=== PATIENT | male | born 1990 | race Caucasian/White ===

== ENCOUNTER 2019-08-29 05:54 | Inpatient (IN) | payer OTHER ==
--- OUTSIDE RECORDS SUMMARY | 2019-08-29 05:56 | XMS REPORT | Clinical Summary ---
:1990 Author Organization [facility] Address [address] [place] [address] Care Team Providers Name Role Phone Asked, No Pcp Primary Care Provider Unavailable Allergies No Known Allergies Medications Medication Sig Dispensed Refills Start Date End Date Status FLUoxetine (PROzac) 20 Take 40 mg by 0 Active MG capsule mouth daily. metFORMIN XR Take 1,000 mg by 0 05/30/2013 Active (GLUCOPHAGE-XR) 500 mg mouth. 24 hr tablet FORA G20 strip test USE FOUR TIMES A 0 02/06/2016 Active strips DAY. INCONTROL SUPER THIN USE FOUR TIMES A 0 02/06/2016 Active LANCETS 30 gauge misc DAY. LANTUS SOLOSTAR 100 Inject 46 Units 5 pen 3 03/04/2016 Active unit/mL injection under the skin (pen) daily. HUMALOG KWIKPEN 100 Inject 12 Units 4 pen 3 03/04/2016 Active unit/mL insulin pen under the skin 3 (three) times a day. Active Problems Problem Noted Date Diabetes type 1, uncontrolled 03/03/2016 Diabetic ketoacidosis without coma associated with typ e 1 diabetes 02/03/2016 mellitus Major depression 02/03/2016 Family History Medical History Relation Name Comments Heart disease Father Heart disease Mother Relation Name Status Comments Father Alive Mother Alive Social History Tobacco Use Types Packs/Day Years Used Date Never Smoker Alcohol Use Drinks/Week oz/Week Comments Yes occasional not o ften Sex Assigned at Date Recorded Not on file Job Start Date Occupation Industry Not on file Not on file Not on file Travel History Travel Start Travel End No recent travel history available. Last Filed Vital Signs Not on file Plan of Treatment Health Maintenance Due Date Last Done Comments DIABETIC RETINAL EYE EXAM 1990 DIABETIC FOOT EXAM 2000 URINE MICROALBUMIN 2000 INFLUENZA VACCINE 09/09/2019 Results Not on fileafter 08/28/2018 Advance Directives For more information, please contact: [phone] Type Date Recorded Patient Photolithographic Stripper Explanati on Advance Directives, Living Will and Medical Power of Housekeeper Child Care
--- OUTSIDE RECORDS SUMMARY | 2019-08-29 05:56 | XMS REPORT | Continuity of Care Document ---
:1990 Author Organization [facility] t Address [address] [place] [address] [address]. [address] [place] [address] Care Team Providers Name Role Phone Asked, Pcp Primary Care Physician Unavailable Samira ASTUDILLO, A Attending Clinician Unavailable Mal Meyer Attending Clinician Josiah US Attending Clinician Misael Attending Clinician Cameron US S Attending Clinician Guilherme ASTUDILLO, E Attending Clinician Josiah US Admitting Clinician Problems Condition Condition Condition Status Onset Resolution Last Treating Co mments Source Name Details Category Date Date Treatment Clinician Date Diabetes Diabetes Disease Active [place] type 1, type 1, 1-24 [facility] uncontroll uncontroll 00:00: st ed ed 00 Diabetic Diabetic Disease Active 2015-02 [place] ketoacidos ketoacidos 2-26 Me thodi is without is without 00:00: st coma coma 00 associated associated with type with type 1 diabetes 1 diabetes mellitus mellitus Major Major Disease Active 2015-02 [place] depression depression 2- Me thodi 00:00: st 00 Allergies, Adverse Reactions, Alerts This patient has no known allergies or adverse reactions. Family History Family Member Diagnosis Comments Start Date Stop Date Source Natural father Heart disease Kale Fisher Natural mother Heart disease [place] [facility] Social History Social Habit Start Date Stop Date Quantity Comments Source Sex Assigned At [place] [facility] Alcohol intake 2016-03-03 2016-03-03 Current drinker of [facility] 00:00:00 00:00:00 alcohol (finding) Alcohol Comment 2016-02-03 2016-02-03 occasional not [place] [facility] 00:00:00 00:00:00 often Smoking Status Start Date Stop Date Source Never smoker [place] [facility] Medications Ordered Filled Start Stop Current Ordering Indication Dosage Frequency Signature Comments Components Source Medication Medication Date Date Medication? Clinician (SIG) Name Name ANTHONY Yes 46U QD Inject 46 [place] SOLOSTAR 1-25 Units [facility] 100 unit/mL 00:00: under the s t injection 00 skin (pen) daily. HUMALOG Yes 12U [id number] Inject 12 [place] KWIKPEN 100 1-25 [id number] Units M ethodi unit/mL 00:00: 3D under the st insulin pen 00 skin 3 (three) times a day. FLUoxetine Yes 40mg QD Take 40 mg [place] (PROzac) 20 1-24 by mouth Meth maria elena MG capsule 10:55: daily. st 13 FORA G20 2015-02 Yes USE FOUR [place] strip test 2-29 TIMES A [facility] strips 00:00: DAY. st 00 INCONTROL 2015-02 Yes USE FOUR [place] SUPER THIN 2-29 TIMES A [facility] LANCETS 30 00:00: DAY. st gauge misc 00 metFORMIN Yes 1000mg Take 1,000 [place] XR 4-22 mg by [facility] (GLUCOPHAGE 00:00: mouth. st -XR) 500 mg 00 24 hr tablet Procedures This patient has no known procedures. Plan of Care Planned Activity Planned Date Details Comments Source Future Scheduled 2019-09-09 INFLUENZA VACCINE [place] [facility] 00:00:00 [code = INFLUENZA VACCINE] Future Scheduled 2000 DIABETIC FOOT EXAM [place] [facility] 00:00:00 [code = DIABETIC FOOT EXAM] Future Scheduled 2000 URINE MICROALBUMIN [place] [facility] 00:00:00 [code = URINE MICROALBUMIN] Future Scheduled 1990 DIABETIC RETINAL EYE [facility] 00:00:00 EXAM [code = DIABETIC RETINAL EYE EXAM] Encounters Start End Encounter Admission Attending Care Care Encounter Source Date/Time Date/Time Type Type Clinicians Facility Department ID 2019-06-13 2019-06-13 Transition Brendan Hoganadriana [id number] 00:00:00 00:00:00 of Care Dequan Borreroy [id number] [place] [id number] 2019-06-07 2019-06-10 [facility] Radha Singh [facility] [id number] 10:13:01 17:28:00 Encounter Brent Rahman [id number] [place] [id number] [place] [id number] 2018-10-20 2018-10-20 Transition MisaelNatalia [id number] 00:00:00 00:00:00 of Care Rosie Luiz [id number] [place] [id number] 2018-10-16 2018-10-19 [facility] [id number]. [id number] 23:16:53 12:33:00 Encounter Brent Rahman [id number] [place] [id number] [place] [id number] 2018-10-19 2018-10-19 Patient Beti Vanegas [id number] 00:00:00 00:00:00 Outreach Yoav Luiz [id number] [place] [id number] Results This patient has no known results.
--- OUTSIDE RECORDS SUMMARY | 2019-08-29 06:01 | XMS REPORT | Summary of Care ---
:1990 Author Organization [facility] Address [address] [place] [id number] Care Team Providers Name Role Phone Pcp, Patient Does Not Have A Primary Care Provider [phone] Reason for Referral Other (Routine) Status Reason Specialty Diagnoses / Referred By Referred To Procedures Contact Contact New Request Diagnoses Hypophosphatemia Shaquille Pineda MD Aglieco, Fabio G, Procedures Discharge Follow-up: Specialty Provider VIRGILIO MORRIS; 1 Week [address] [place], [place] [address] [place] [address] [address] [place], [place] Phone: [phone] Phone: Fax: (Routine) Status Reason Specialty Diagnoses / Procedures Referred By R eferred To Contact Contact New Request Diagnoses Diabetic ketoacidosis without coma associated with other specified diabetes mellitus Shaquille Pineda MD Pcp, Patient Does Procedures Discharge Follow-up: PCP PATIENT DOES NOT HAVE A PCP; 1 Week 301 [facility] Not Have A [place], [place] [address] [facility] [address] [address] [place], [place] Phone: [phone] Phone: Radiology Services (STAT) Status Reason Specialty Diagnoses / Referred By Referred To Procedures Contact Contact New Request Diagnostic Diagnoses Diabetic ketoacidosis without coma associated with other specified diabetes mellitus Leukocytosis, unspecified type Singh, Radha Radiology Procedures XR CHEST 1 VW R, EMNP 301 [facility] [id number] [place] [address] Reason for Visit Reason Comments Other high glucose Auth/Cert Status Reason Specialty Diagnoses / Referred By Referred To Procedures Contact Contact Emergency Medicine Diagnoses SOB [facility] Emergency Dept [address] [place] [address] [place] [address] Fax: Encounter Details Date Type Department Care Team Description 06/07/2019 - [facility] Medicine Radha Singh EMNP [address] [id number] [place], [place] [id number] DKA (diabetic 06/10/2019 Encounter Surgery Unit Brent Rahman MD 301 [facility]. [address] [place], [place] [id number] ketoacidoses) [address] [place] [address] [place], [place] [id number] Allergies No Known Allergiesdocumented as of this encounter (statuses as of 06/10/2019) Medications Medication Sig Dispensed Refills Start End Date Status Date glucagon (GLUCAGON inject 1 mg 1 mg 6 Active EMERGENCY) 1 mg under the 4 injectionIndications: skin as Type I (juvenile needed for type) diabetes Other (BG mellitus without <70 and mention of patient complication, unresponsive uncontrolled .). insulin degludec inject 46 0 Act henrry (TRESIBA FLEXTOUCH Units under U-100) 100 unit/mL (3 the skin mL) InPn daily. traZODone 50 mg Take 50 mg 0 Act henrry tablet by mouth at bedtime. SERTraline 100 mg Take 100 mg 0 Active tabletIndications: by mouth anxiety daily. Indications: anxious NOVOLOG U-100 INSULIN inject 0 Active ASPART SC under the skin 3 (three) times daily before meals. potassium, sodium Take 1 3 Packet 0 Ac tive phosphates Packet by 0 280-160-250 mg mouth 3 packetIndications: (three) Hypophosphatemia times daily. lactobacillus Take 1 14 tablet 0 Active acidophilus 25 tablet by 0 million cell -100 mg mouth 2 captabIndications: (two) times Leukocytosis, daily. unspecified type ampicillin 500 mg Take 1 21 capsule 0 A ctive capsuleIndications: capsule by 0 Leukocytosis, mouth 3 unspecified type (three) times daily. metformin ER Take 2 Tabs 120 Tab 3 06/07/19 Disco ntinued (GLUCOPHAGE-XR) 500 by mouth 2 4 20 (Patient mg 24 hr (two) times Reported ) tabletIndications: daily with Type I (juvenile meals. type) diabetes mellitus without mention of complication, uncontrolled insulin lispro inject 22 1 Box 2 06/07/19 Disco ntinued (HUMALOG KWIKPEN) 100 Units under 7 20 (Patient unit/mL pen injector the skin 3 Reported) (three) times daily before meals. insulin inject 34 0 06/07/19 Discontinu ed glargine,hum.rec.anlo Units under 20 (Patient g (TOUJEO SOLOSTAR the skin R eported) U-300 INSULIN SC) daily. ampicillin 500 mg Take 1 21 capsule 0 06/10/19 D iscontinued capsuleIndications: capsule by 0 20 Leukocytosis, mouth 3 unspecified type (three) times daily for 7 days. potassium, sodium Take 1 3 Packet 0 06/10/19 Di scontinued phosphates Packet by 0 20 280-160-250 mg mouth 3 packetIndications: (three) Hypophosphatemia times daily for 1 day. lactobacillus Take 1 14 tablet 0 06/10/19 Discon tinued acidophilus 25 tablet by 0 20 million cell -100 mg mouth 2 captabIndications: (two) times Leukocytosis, daily for 7 unspecified type days. 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 Chlamydia infection 06/15/2013 Seasonal allergic rhinitis 05/24/2013 Obesity (BMI 30.0-34.9) 07/05/2012 Insulin pump status 06/20/2012 Overview: Medtronic 723 started May 2012 Uncontrolled type 1 diabetes mellitus 10/05/2008 Overview: ICD10 Diagnosis Term Legislative Analyst Utility documented as of this encounter (statuses as of 06/10/2019) Immunizations Name Administration Dates Next Due Influenza Virus Vaccine 10/20/2017 Influenza Virus Vaccine Quad .5 mL IM 6+ MO 06/10/2019 documented as of this encounter Social History Tobacco Use Types Packs/Day Years Used Date Never Smoker Smokeless Tobacco: Never Used Alcohol Use Drinks/Week oz/Week Comments Yes 0.25 Standard drinks or equivalent 0.0 twice a month Sex Assigned at Date Recorded Not on file Job Start Date Occupation Industry Not on file Not on file Not on file Travel History Travel Start Travel End No recent travel history available. COVID-19 Exposure Response Date Recorded In the last month, have you been in contact with No / Unsure 06/07/2019 10:31 AM CDT someone who was confirmed or suspected to have Coronavirus / COVID-19? documented as of this encounter Last Filed Vital Signs Vital Sign Reading Time Taken Comments Blood Pressure 126/65 06/10/2019 3:49 PM CDT Pulse 55 06/10/2019 3:49 PM CDT Temperature 36.3 C (97.3 F) 06/10/2019 3:49 PM CDT Respiratory Rate 18 06/10/2019 3:49 PM CDT Oxygen Saturation 99% 06/10/2019 3:49 PM CDT Inhaled Oxygen Concentration - - Weight 129.3 kg (285 lb) 06/07/2019 2:00 PM CDT Height 185.4 cm (6' 1") 06/07/2019 10:33 AM CDT Body Mass Index 37.6 06/07/2019 10:33 AM CDT documented in this encounter Discharge Instructions AttachmentsThe following attachments cannot be sent through Care Everywhere. Diabetes, Managing Stress When You Have (Paraguayan)Diabetes, Medicine, Ways to Take (Paraguayan)Potassium phosphate; Sodium Phosphate oral tablet ([place]aguayan) Ampicillin capsules (Paraguayan)Lactobacillus Oral formulations (Paraguayan)documented in this encounter Progress Notes Francisco Gallardo RN - 06/10/2019 5:00 PM CDT Care Management Discharge Disposition Note (DCDN) 5-2-1 Interventions: Disease specific education;Intensive medication reconciliation/management;Teachback;Clear discharge plan;Follow-up appointments 5-2-1 Providers: Porcelain Enamel Sprayer/Burrer Hand;Physician 5-2-1 Patient Capacity Improvements: Avoidance of adverse events/readmission Discharge Plan for ongoing care and services: Is this a new referral: Patient Choice completed for referred services: DME location: Other DME location: Durable Medical Equipment: Home Health location: Discharge location(s): Patient choice completed for referred services: Discussed with patient/patients family involved in decision making: Yes Patient or family caregiver understands, and agrees with discharge plan. Community resources/referrals made or provided to patient: No Resources/Referrals: Transportation: Private Vehicle(Tatyana Velez, friend [phone]) Mental Status: Alert & Oriented to Person,Place & Time Living Arrangement: Home Other living arrangement: Address of living arrangement: [address] [place] [address] Funding Resources: [facility] informed of discharge plan: [place] of RN informed: Estimated discharge date: 06/10/19 Time: Additional Information: HARLEY/LEONIE Name & Contact number: Francisco Gallardo RN BSN not for patient use [email or web address] The following information has been provided to the facility noted above: reason for the patient discharge or transfer; patients physical and psychosocial status; summary of care, treatment, servicesprovided to patient; and the patient progress toward goals. Shaquille Leo MD - 06/09/2019 6:52 PM CDT Hospitalist Progress Note SUBJECTIVE: No acute event C/o sore throat. COVID negative on arrival CURRENT MEDICATIONS - reviewed. Current Facility-Administered Medications Medication Dose Route Frequency Last Rate Last Dose ampicillin (PRINCIPEN) capsule 500 mg 500 mg Oral TID 500 mg at 06/09/19 1337 benzocaine-menthol (CEPACOL SORE THROAT (FRANCESCO-MEN)) lozenge 1 Lozenge 1 Lozenge Oral Q4HPRN [START ON 06/10/2019] insulin glargine (LANTUS U-100) injection 55 Units 55 Units Subcutaneous DAILY acetaminophen (TYLENOL) tablet 650 mg 650 mg Oral Q8HPRN 650 mg at 06/09/19 0049 NaCl 0.45% (1/2NS) IV infusion 1,000 mL 1,000 mL IV Infusion CONTINUOUS 125 mL/hr at 06/09/19 1108 1,000 mL at 06/09/19 1108 phosphorus (K PHOS NEUTRAL) tablet 2 tablet 500 mg Oral BID 2 tablet at 06/09/19 0953 Sliding Scale Insulin - Aspart (NOVOLOG) + Fsbg Testing Subcutaneous TID MEALS+HS 2 Units at06/09/19 1655 sodium bicarbonate (ANTACID (SODIUM BICARBONATE)) tablet 650 mg 650 mg Oral QID 650 mg at 06/09/19 1630 traMADol (ULTRAM) tablet 50 mg 50 mg Oral BIDPRN 50 mg at 06/08/19 2329 docusate (COLACE) capsule 100 mg 100 mg Oral BID 100 mg at 06/09/19 0954 lactobacillus acidophilus (ACIDOPHILLUS) 25 million cell -100 mg captab 1 tablet 1 tablet Oral BID 1 tablet at 06/09/19 0953 ondansetron (ZOFRAN (PF)) injection 4 mg 4 mg Slow IV Push Q6HPRN 4 mg at 06/09/19 0121 PHYSICAL EXAM: BP (!) 142/84 | Pulse 82 | Temp 36.7 C (98.1 F) (Tympanic) | Resp 18 | Ht 1.854 m (6' 1") |Wt 129.3 kg (285 lb) | SpO2 98% | BMI 37.60 kg/m Temp: [36.6 C (97.8 F)-37.2 C (99 F)] Pulse: [58-94] Resp: [16-18] BP: (120-146)/(58-84) POCT Blood Glucose (manual): [251 mg/dL-265 mg/dL] Intake/Output Summary (Last 24 hours) at 06/09/2019 1853 Last data filed at 06/09/2019 1410 Gross per 24 hour Intake 630 ml Output 3800 ml Net -3170 ml NAD Anicteric sclera Mild pharyngeal erythema Good air entry b/l RRR, nl s1s2 Abd soft NT No significant LE, no calf tenderness AAO, no gross deficits Skin warm and dry Bilateral knees not red or swollen LABS/IMAGING - reviewed, pertinent results as below: CBC BMP PT/INR WBC x10^3 (/uL) Date Value 04/05/2012 4.6 WBC-LC (x10E3/uL) Date Value 09/15/2012 6.3 WBC (10*3/L) Date Value 06/08/2019 23.79 (H) NA Date Value 06/09/2019 135 mmol/L 04/05/2012 139 MMOL/L Sodium, Serum-LC (mmol/L) Date Value 09/15/2012 141 No results found for: PT RBC x10^6 (/uL) Date Value 04/05/2012 5.34 RBC-LC (x10E6/uL) Date Value 09/15/2012 5.61 RBC (10*6/L) Date Value 06/08/2019 4.89 K Date Value 06/09/2019 3.1 mmol/L (L) 04/05/2012 4.4 MMOL/L Potassium, Serum-LC (mmol/L) Date Value 09/15/2012 3.9 No results found for: PTINR PLT x10^3 (/uL) Date Value 04/05/2012 233 Platelets-LC (x10E3/uL) Date Value 09/15/2012 240 PLT (10*3/L) Date Value 06/08/2019 321 CALCIUM Date Value 06/09/2019 6.5 mg/dL (L) 04/05/2012 9.5 MG/DL Calcium, Serum-LC (mg/dL) Date Value 09/15/2012 10.0 HGB Date Value 06/08/2019 14.7 g/dL 04/05/2012 15.9 G/DL Hemoglobin-LC (g/dL) Date Value 09/15/2012 16.4 CL Date Value 06/09/2019 111 mmol/L (H) 04/05/2012 102 MMOL/L Chloride, Serum-LC (mmol/L) Date Value 09/15/2012 100 aPTT HCT (%) Date Value 06/08/2019 42.6 04/05/2012 45.9 Hematocrit-LC (%) Date Value 09/15/2012 48.7 BUN Date Value 06/09/2019 7 mg/dL 04/05/2012 17 MG/DL BUN-LC (mg/dL) Date Value 09/15/2012 16 No results found for: APTTPAT CREATININE Date Value 06/09/2019 0.37 mg/dL (L) 04/05/2012 0.48 MG/DL (L) Creatinine, Serum-LC (mg/dL) Date Value 09/15/2012 0.70 (L) IMAGING- Hospital Encounter on 06/07/19 XR CHEST 1 VW Narrative HISTORY: DKA. TECHNIQUE: 2 Portable AP view of the chest were obtained. Comparison made with 10/17/2018 study. FINDINGS: No acute pneumonia. No pneumothorax or pleural effusion or pulmonary congestion detected. Cardiac size is within normal limits. CONCLUSIONS: No signs of acute cardiopulmonary disease. HPI: 28 y/o male presented to ER with one day of vomiting, persistent and dyspnea and difficulty catchingbreath. No chest pain, fevers/chills, sick contacts, abd apin, dysuria. Last DKA admission was here in October 2018. He says he's been compliant with his insulin. ASSESSMENT/PLAN Esa Esquivel Jr. is a 28 year old male with DKA ENRIQUETA Hyperkalemia Acute respiratory distress Anion gap metabolic acidsos Severe dehydration Severe leukocytosis, check diff consult Uncontrolled IDDM with hyperglycemia, A1c 9.6, takes tresiba 46 units QAM, novolog sliding scale Anxiety, insomnia, trazodone prn Depression zoloft 100 mg qd Morbid Obesity Not taking hiv prophylaxis anymore Thrombocytosis hypophosphatemia DKA resolved. On lantus and ssi Procal 0.99, repeat again in AM to see trend F/u diff consult, cultures Wbc improving, was very high on admission Ceftriaxone, azithromycin stopped on day 3. Ampicillin started 06/08 per ID Patient has sore throat. Will check strep and flu CXR no acute pathology IVF ENRIQUETA resolved Nephrology consult Dr. Morris dvt proph SCD Full Code Dispo - home likely tomorrow if WBC continue to trend down Seble Cheek LBSW - 06/09/2019 10:41 AM CDTSubjective Patient ID: Eas Esquivel Jr. is a 28 year old male. Care Management Social Functional Assessment Patient Name: Esa Esquivel Jr. Age: [age] year old Sex: male Patient's Previous Admission Date at [facility]: 10/17/2018 Current diagnosis and co-morbidities: SOB; DKA; LEUKOCYTOSIS Readmission Questions: Was patient discharged from any acute care hospital within the last 30 days: No Social Functional Assessment: Primary language spoken/preferred: [place]ayan Mental Status: Alert & Oriented to Person,Place & Time Information given by: Self Patient's support system: Other Name and number of support system: Tatyana Velez, friend [phone] Primary Greenskeeper Supervisor: Self MPOA: No Living Arrangement: Home Address of living arrangement : [address] [facility] [address] Persons living in home: Self Barriers to returning home: None Baseline functional status- ambulation: Independent Functional status-baseline personal care: Independent Baseline functional status- driving: Independent Baseline functional status- grocery shopping: Independent Functional status-baseline housekeeping: Independent Functional status-baseline meal prep: Independent Current functional status same as prior: Yes Do you have a PCP?: No Home Health Care Agency: No Provider Services: No DME Company: No Equipment: None Hemodialysis: No Community resources utilized: None Funding Resources: Commercial Prescription coverage plan: [facility] where meds are filled: Other Other pharmacy: [facility] Anticipated services prior to disharge: Continue Medical Eval Expected mode of discharge transportation: Same as support system Additional Recommendations for DC: Medical clearance Additional info required for discharge planning: Pending medical evaluation Recommended discharge plan: Home SFA Complete: Social Functional Assessment complete: Yes Alcohol Use Screening (AUDIT-C) How often do you have a drink containing alcohol?: Never SCORE: 0 Did patient elect to have resources provided: No Role of Care Management explained. Any issues or concerns with obtaining/affording your medications at home: no. Are you or your support system able to brain picker medications at discharge: yes. Review of Systems Objective Physical Exam Assessment/Plan Home with family support ,no needs to report ELPIDIO Fried Burrer Hand - Care Management [facility] [phone] [email or web address] Silverio Michelle FNP - 06/09/2019 10:33 AM CDT Subjective: Patient is a 28-year-old male who presented to the emergency room with vomiting and dyspnea. Past medical history of diabetes. Patient found to be in DKA. Patient with leukocytosis which I have consulted for. Patient examined at bedside. Denies nausea, vomiting, diarrhea and fevers. Deniesburning/pain with urination. Patient reports abdominal tenderness improving. Objective: Vitals: 06/08/19201806/08/19 2316 06/09/19 0404 06/09/19 0716 BP: 129/73 (!) 146/73 (!) 144/78 130/73 Pulse: 94 89 58 75 Resp: 16 18 16 18 Temp: 36.9 C (98.4 F) 37.2 C (99 F) 36.6 C (97.9 F) 36.6 C (97.8 F) TempSrc: Temporal Artery Temporal Artery Temporal Artery SpO2: 100% 97% 98% 98% Weight: Height: CBC WBC x10^3 (/uL) Date Value 04/05/2012 4.6 WBC-LC (x10E3/uL) Date Value 09/15/2012 6.3 WBC (10*3/L) Date Value 06/08/2019 23.79 (H) RBC x10^6 (/uL) Date Value 04/05/2012 5.34 RBC-LC (x10E6/uL) Date Value 09/15/2012 5.61 RBC (10*6/L) Date Value 06/08/2019 4.89 PLT x10^3 (/uL) Date Value 04/05/2012 233 Platelets-LC (x10E3/uL) Date Value 09/15/2012 240 PLT (10*3/L) Date Value 06/08/2019 321 HGB Date Value 06/08/2019 14.7 g/dL 04/05/2012 15.9 G/DL Hemoglobin-LC (g/dL) Date Value 09/15/2012 16.4 HCT (%) Date Value 06/08/2019 42.6 04/05/2012 45.9 Hematocrit-LC (%) Date Value 09/15/2012 48.7 CMP NA Date Value 06/09/2019 135 mmol/L 04/05/2012 139 MMOL/L Sodium, Serum-LC (mmol/L) Date Value 09/15/2012 141 K Date Value 06/09/2019 3.1 mmol/L (L) 04/05/2012 4.4 MMOL/L Potassium, Serum-LC (mmol/L) Date Value 09/15/2012 3.9 CALCIUM Date Value 06/09/2019 6.5 mg/dL (L) 04/05/2012 9.5 MG/DL Calcium, Serum-LC (mg/dL) Date Value 09/15/2012 10.0 CL Date Value 06/09/2019 111 mmol/L (H) 04/05/2012 102 MMOL/L Chloride, Serum-LC (mmol/L) Date Value 09/15/2012 100 BUN Date Value 06/09/2019 7 mg/dL 04/05/2012 17 MG/DL BUN-LC (mg/dL) Date Value 09/15/2012 16 CREATININE Date Value 06/09/2019 0.37 mg/dL (L) 04/05/2012 0.48 MG/DL (L) Creatinine, Serum-LC (mg/dL) Date Value 09/15/2012 0.70 (L) GLUCOSE Date Value 06/09/2019 211 mg/dL (H) 04/05/2012 271 MG/DL (H) Glucose, Serum-LC (mg/dL) Date Value 09/15/2012 92 CO2 TOTAL Date Value 06/09/2019 14 mmol/L (L) 04/05/2012 25 MMOL/L Carbon Dioxide, Total-LC (mmol/L) Date Value 09/15/2012 23 ALBUMIN Date Value 06/09/2019 2.5 g/dL (L) 04/05/2012 3.9 G/DL Albumin, Serum-LC (g/dL) Date Value 09/15/2012 4.8 T PROTEIN Date Value 06/09/2019 4.9 g/dL (L) 04/05/2012 6.8 G/DL Protein, Total, Serum-LC (g/dL) Date Value 09/15/2012 7.6 TOTAL BILI Date Value 06/09/2019 0.4 mg/dL 04/05/2012 0.3 MG/DL BILI UNCON Date Value 06/07/2019 0.4 mg/dL 04/05/2012 0.2 MG/DL BILI CONJ Date Value 06/07/2019 0.0 mg/dL 04/05/2012 0.0 MG/DL ALT(SGPT) (U/L) Date Value 10/16/2018 16 04/05/2012 29 ALT (SGPT)-LC (IU/L) Date Value 09/15/2012 14 ALTv (U/L) Date Value 06/09/2019 9 AST(SGOT) (U/L) Date Value 06/09/2019 20 04/05/2012 23 AST (SGOT)-LC (IU/L) Date Value 09/15/2012 22 ALK PHOS (U/L) Date Value 06/09/2019 46 04/05/2012 81 Alkaline Phosphatase, S-LC (IU/L) Date Value 09/15/2012 51 ROS: General: Awake, alert, lying in bed, c/o headache CV: S1, S2 RESP: Diminished lung sounds to bilateral bases ABD: Round, soft, tenderness with palpation : Damon in place, dark cloudy urine Assessment and plan: Leukocytosis, blood Cultures no growth to date and urine cultures show 10,000- 100,000 Streptococcus agalactiae, recommend Ampicillin 500mg q8h x7 days X-ray negative Recommend to DC Azithromycin and Rocephin Will continue to monitor Patient discussed with Dr. Sharma Virgilio Ag DO - 06/09/2019 8:42 AM CDT Nephrology Progress Note Admit Date: 06/07/2019 CPS stable without CP or SOB. No acute events overnight. Feeling better today. Temp: [36.6 C (97.8 F)-37.2 C (99 F)] Pulse: [58-89] Resp: [16-18] BP: (120-146)/(58-84) POCT Blood Glucose (manual): [251 mg/dL-265 mg/dL] Vitals and medications reviewed in the chart. Blood work and imaging reviewed in the chart. PE: Gen: NAD HEENT: NCAT. MMM. Neck: Supple. No LAD. Lungs: CTA CVS: RRR Abd: Soft. NT. +BS Ext: No C/C. LE Edema none. Skin: No rash Psych: AAO Neuro: Normal speech ASSESSMENT/PLAN Esa Esquivel Jr. is a 28 year old male with PMH as listed above, admitted to the hospital with: The primary encounter diagnosis was Diabetic ketoacidosis without coma associated with other specified diabetes mellitus. A diagnosis of Leukocytosis, unspecified type was also pertinent to this visit. A/ ENRIQUETA improving with IVF. Proteinuria Hyperkalemia/ Hypokalemia Acidosis Hypocalcemia HypoPO4 DM I with DKA & CKD Acute respiratory distress P/ Continue current POC and Medications other than changes listed below. Please see chart and orders for complete details. Change IVF NS. Replete potassium. Continue oral bicarb. Start Calcitriol. Continue abx. Titrate insulin as needed. No NSAIDs. AM labs. Daily weight. 06/07/19 1400 Weight: 129.3 kg (285 lb) Height: Vitals: 06/09/19 0716 06/09/19 1103 06/09/19 1619 06/09/19 1955 BP: 130/73 120/58 (!) 142/84 122/63 Pulse: 75 68 82 63 Resp: 18 18 18 18 Temp: 36.6 C (97.8 F) 37.1 C (98.7 F) 36.7 C (98.1 F) 36.8 C (98.3 F) TempSrc: Tympanic Tympanic SpO2: 98% 98% 98% 100% Weight: Height: Intake/Output Summary (Last 24 hours) at 06/09/2019 2222 Last data filed at 06/09/2019 1410 Gross per 24 hour Intake 630 ml Output 3800 ml Net -3170 ml Hospital Encounter on 06/07/19 XR CHEST 1 VW Narrative HISTORY: DKA. TECHNIQUE: 2 Portable AP view of the chest were obtained. Comparison made with 10/17/2018 study. FINDINGS: No acute pneumonia. No pneumothorax or pleural effusion or pulmonary congestion detected. Cardiac size is within normal limits. CONCLUSIONS: No signs of acute cardiopulmonary disease. Recent Results (from the past 48 hour(s)) POCT GLUCOSE (AUTOMATED) Collection Time: 06/07/19 11:24 PM Result Value Ref Range POCT GLU 174 (H) 70 - 110 mg/dL ACUTE CARE VENOUS BLOOD GAS Collection Time: 06/07/19 11:27 PM Result Value Ref Range PH 7.30 (L) 7.32 - 7.42 PCO2 PAULA 24 (L) 41 - 51 mmHg PO2 PAULA 123 (HH) 25 - 40 mmHg HCO3 PAULA 12 (L) 24 - 28 mEq/L AC VBE(BEAKER) -12.6 mEq/L POCT GLUCOSE (AUTOMATED) Collection Time: 06/08/19 12:15 AM Result Value Ref Range POCT GLU 171 (H) 70 - 110 mg/dL POCT GLUCOSE (AUTOMATED) Collection Time: 06/08/19 12:57 AM Result Value Ref Range POCT GLU 181 (H) 70 - 110 mg/dL BASIC METABOLIC PANEL (NA, K, CL, CO2, GLUCOSE, BUN, CREATININE, CA) Collection Time: 06/08/19 12:59 AM Result Value Ref Range NA 139 135 - 145 mmol/L K 4.4 3.5 - 5.0 mmol/L CL 111 (H) 98 - 108 mmol/L CO2 TOTAL 11 (L) 23 - 31 mmol/L AGAP 17 (H) 2 - 16 BUN 17 7 - 23 mg/dL GLUCOSE 249 (H) 70 - 110 mg/dL CREATININE 0.87 0.60 - 1.25 mg/dL CALCIUM 9.2 8.6 - 10.6 mg/dL eGFR Calculation (Non-) 104.5 mL/min/1.73m2 eGFR Calculation () 126.6 mL/min/1.73m2 POCT GLUCOSE (AUTOMATED) Collection Time: 06/08/19 2:02 AM Result Value Ref Range POCT GLU 165 (H) 70 - 110 mg/dL POCT GLUCOSE (AUTOMATED) Collection Time: 06/08/19 3:24 AM Result Value Ref Range POCT GLU 150 (H) 70 - 110 mg/dL POCT GLUCOSE (AUTOMATED) Collection Time: 06/08/19 4:04 AM Result Value Ref Range POCT GLU 160 (H) 70 - 110 mg/dL POCT GLUCOSE (AUTOMATED) Collection Time: 06/08/19 5:11 AM Result Value Ref Range POCT GLU 149 (H) 70 - 110 mg/dL POCT GLUCOSE (AUTOMATED) Collection Time: 06/08/19 5:39 AM Result Value Ref Range POCT GLU 162 (H) 70 - 110 mg/dL COMP. METABOLIC PANEL (02775) Collection Time: 06/08/19 5:43 AM Result Value Ref Range NA 140 135 - 145 mmol/L K 3.8 3.5 - 5.0 mmol/L CL 109 (H) 98 - 108 mmol/L CO2 TOTAL 18 (L) 23 - 31 mmol/L AGAP 13 2 - 16 BUN 16 7 - 23 mg/dL GLUCOSE 151 (H) 70 - 110 mg/dL CREATININE 0.75 0.60 - 1.25 mg/dL TOTAL BILI 0.5 0.1 - 1.1 mg/dL CALCIUM 9.3 8.6 - 10.6 mg/dL T PROTEIN 8.2 6.3 - 8.2 g/dL ALBUMIN 4.7 3.5 - 5.0 g/dL ALK PHOS 84 34 - 122 U/L ALTv 15 5 - 50 U/L AST(SGOT) 25 13 - 40 U/L eGFR Calculation (Non-) 124.0 mL/min/1.73m2 eGFR Calculation () 150.3 mL/min/1.73m2 MAGNESIUM Collection Time: 06/08/19 5:43 AM Result Value Ref Range MAGNESIUM 2.2 1.7 - 2.4 mg/dL PHOSPHORUS Collection Time: 06/08/19 5:43 AM Result Value Ref Range PHOSPHORUS 1.8 (L) 2.5 - 5.0 mg/dL ACUTE CARE VENOUS BLOOD GAS Collection Time: 06/08/19 5:43 AM Result Value Ref Range PH 7.31 (L) 7.32 - 7.42 PCO2 PAULA 37 (L) 41 - 51 mmHg PO2 PAULA 30 25 - 40 mmHg HCO3 PAULA 18 (L) 24 - 28 mEq/L AC VBE(BEAKER) -7.5 mEq/L CBC WITH DIFFERENTIAL Collection Time: 06/08/19 5:43 AM Result Value Ref Range WBC 23.79 (H) 4.20 - 10.70 10*3/L RBC 4.89 4.26 - 5.52 10*6/L HGB 14.7 12.2 - 16.4 g/dL HCT 42.6 38.4 - 49.3 % MCV 87.1 81.7 - 95.6 fL MCH 30.1 26.1 - 32.7 pg MCHC 34.5 31.2 - 35.0 g/dL RDW-SD 40.2 38.5 - 51.6 fL RDW-CV 12.7 12.1 - 15.4 % PLT 321 150 - 328 10*3/L MPV 9.8 9.8 - 13.0 fL NRBC/100 WBC 0.0 0.0 - 10.0 /100 WBCs NRBC x10^3 <0.01 10*3/L GRAN MAT (NEUT) % 85.6 % IMM GRAN % 0.90 % LYMPH % 4.8 % MONO % 8.5 % EOS % 0.0 % BASO % 0.2 % GRAN MAT x10^3(ANC) 20.37 (H) 1.99 - 6.95 10*3/uL IMM GRAN x10^3 0.22 (H) 0.00 - 0.06 10*3/uL LYMPH x10^3 1.14 1.09 - 3.23 10*3/uL MONO x10^3 2.02 (H) 0.36 - 1.02 10*3/uL EOS x10^3 <0.03 (L) 0.06 - 0.53 10*3/uL BASO x10^3 0.04 0.01 - 0.09 10*3/uL POCT GLUCOSE (AUTOMATED) Collection Time: 06/08/19 6:11 AM Result Value Ref Range POCT GLU 151 (H) 70 - 110 mg/dL POCT GLUCOSE (AUTOMATED) Collection Time: 06/08/19 7:24 AM Result Value Ref Range POCT GLU 154 (H) 70 - 110 mg/dL POCT GLUCOSE (AUTOMATED) Collection Time: 06/08/19 8:32 AM Result Value Ref Range POCT GLU 105 70 - 110 mg/dL POCT GLUCOSE (AUTOMATED) Collection Time: 06/08/19 9:32 AM Result Value Ref Range POCT GLU 140 (H) 70 - 110 mg/dL POCT GLUCOSE (AUTOMATED) Collection Time: 06/08/19 10:28 AM Result Value Ref Range POCT GLU 152 (H) 70 - 110 mg/dL POCT GLUCOSE (AUTOMATED) Collection Time: 06/08/19 11:33 AM Result Value Ref Range POCT GLU 134 (H) 70 - 110 mg/dL POCT GLUCOSE (AUTOMATED) Collection Time: 06/08/19 12:01 PM Result Value Ref Range POCT GLU 160 (H) 70 - 110 mg/dL POCT GLUCOSE (AUTOMATED) Collection Time: 06/08/19 12:37 PM Result Value Ref Range POCT GLU 162 (H) 70 - 110 mg/dL POCT GLUCOSE (AUTOMATED) Collection Time: 06/08/19 1:28 PM Result Value Ref Range POCT GLU 170 (H) 70 - 110 mg/dL Lactic Acid Whole Blood Collection Time: 06/08/19 2:13 PM Result Value Ref Range LACTIC ACID 1.31 0.50 - 2.20 mmol/L BASIC METABOLIC PANEL (NA, K, CL, CO2, GLUCOSE, BUN, CREATININE, CA) Collection Time: 06/08/19 2:14 PM Result Value Ref Range NA 136 135 - 145 mmol/L K 4.0 3.5 - 5.0 mmol/L CL 107 98 - 108 mmol/L CO2 TOTAL 17 (L) 23 - 31 mmol/L AGAP 12 2 - 16 BUN 12 7 - 23 mg/dL GLUCOSE 210 (H) 70 - 110 mg/dL CREATININE 0.56 (L) 0.60 - 1.25 mg/dL CALCIUM 9.0 8.6 - 10.6 mg/dL eGFR Calculation (Non-) 173.7 mL/min/1.73m2 eGFR Calculation () 210.6 mL/min/1.73m2 PROCALCITONIN Collection Time: 06/08/19 2:14 PM Result Value Ref Range Procalcitonin 0.65 (H) <0.07 ng/mL URINALYSIS Collection Time: 06/08/19 6:34 PM Result Value Ref Range APPEARANCE Hazy (A) Clear COLOR Yellow Yellow PH 6.0 4.8 - 8.0 SP GRAVITY 1.017 1.003 - 1.030 GLU U QUAL 500 mg/dL (A) Normal BLOOD 3+ (A) Negative KETONES 80 mg/dL (A) Negative PROTEIN Negative Negative UROBILIN Normal Normal BILIRUBIN Negative Negative NITRITE Negative Negative LEUK AIMEE 500/uL (A) Negative RBC/HPF 41 (H) 0 - 3 HPF WBC/HPF 54 (H) 0 - 5 HPF BACTERIA Moderate (A) Negative MUCOUS Slight (A) Negative LPF SQ EPITH 1 HPF POCT GLUCOSE (AUTOMATED) Collection Time: 06/08/19 8:58 PM Result Value Ref Range POCT GLU 225 (H) 70 - 110 mg/dL POCT GLUCOSE (AUTOMATED) Collection Time: 06/09/19 2:25 AM Result Value Ref Range POCT GLU 229 (H) 70 - 110 mg/dL COMP. METABOLIC PANEL (19268) Collection Time: 06/09/19 5:19 AM Result Value Ref Range NA 135 135 - 145 mmol/L K 3.1 (L) 3.5 - 5.0 mmol/L CL 111 (H) 98 - 108 mmol/L CO2 TOTAL 14 (L) 23 - 31 mmol/L AGAP 10 2 - 16 BUN 7 7 - 23 mg/dL GLUCOSE 211 (H) 70 - 110 mg/dL CREATININE 0.37 (L) 0.60 - 1.25 mg/dL TOTAL BILI 0.4 0.1 - 1.1 mg/dL CALCIUM 6.5 (L) 8.6 - 10.6 mg/dL T PROTEIN 4.9 (L) 6.3 - 8.2 g/dL ALBUMIN 2.5 (L) 3.5 - 5.0 g/dL ALK PHOS 46 34 - 122 U/L ALTv 9 5 - 50 U/L AST(SGOT) 20 13 - 40 U/L eGFR Calculation (Non-) 280.3 mL/min/1.73m2 eGFR Calculation () 339.7 mL/min/1.73m2 POCT GLUCOSE (AUTOMATED) Collection Time: 06/09/19 7:17 AM Result Value Ref Range POCT GLU 251 (H) 70 - 110 mg/dL POCT GLUCOSE (AUTOMATED) Collection Time: 06/09/19 11:05 AM Result Value Ref Range POCT GLU 265 (H) 70 - 110 mg/dL POCT GLUCOSE (AUTOMATED) Collection Time: 06/09/19 4:21 PM Result Value Ref Range POCT GLU 220 (H) 70 - 110 mg/dL POCT GLUCOSE (AUTOMATED) Collection Time: 06/09/19 8:06 PM Result Value Ref Range POCT GLU 211 (H) 70 - 110 mg/dL Current Facility-Administered Medications Medication Dose Route Frequency Last Rate Last Dose ampicillin (PRINCIPEN) capsule 500 mg 500 mg Oral TID 500 mg at 06/09/192009 benzocaine-menthol (CEPACOL SORE THROAT (FRANCESCO-MEN)) lozenge 1 Lozenge 1 Lozenge Oral Q4HPRN 1Lozenge at 06/09/19 193 calcitrioL (ROCALTROL) capsule 0.5 mcg 0.5 mcg Oral DAILY [START ON 06/10/2019] insulin glargine (LANTUS U-100) injection 55 Units 55 Units Subcutaneous DAILY NaCl 0.9% (NS) IV infusion IV Infusion CONTINUOUS acetaminophen (TYLENOL) tablet 650 mg 650 mg Oral Q8HPRN 650 mg at 06/09/199 phosphorus (K PHOS NEUTRAL) tablet 2 tablet 500 mg Oral BID 2 tablet at 06/09/192009 Sliding Scale Insulin - Aspart (NOVOLOG) + Fsbg Testing Subcutaneous TID MEALS+HS 2 Units at06/09/192008 sodium bicarbonate (ANTACID (SODIUM BICARBONATE)) tablet 650 mg 650 mg Oral QID 650 mg at 06/09/192009 traMADol (ULTRAM) tablet 50 mg 50 mg Oral BIDPRN 50 mg at 06/08/192328 docusate (COLACE) capsule 100 mg 100 mg Oral BID 100 mg at 06/09/192009 lactobacillus acidophilus (ACIDOPHILLUS) 25 million cell -100 mg captab 1 tablet 1 tablet Oral BID 1 tablet at 06/09/192009 ondansetron (ZOFRAN (PF)) injection 4 mg 4 mg Slow IV Push Q6HPRN 4 mg at 06/09/192018 orge Luis Carson LMSW - 06/08/2019 4:29 PM CDTSocial Work Note Sw made Multiple attempts to contact patient but not answering .LEONIE will complete SFA later. Jorge Luis Anton LMSW [facility], Care Management Judy Bobby RD - 06/08/2019 2:03 PM CDT MEDICAL NUTRITION THERAPY- EDUCATION NOTE: Reason For Consultation: Screened for DKA Malnutrition Assessment: Nutritional Diagnosis: None SGA Rating: Well-Nourished, Normal Plan: Diabetic diet education, recommend 2000 calorie diabetic consistent carbohydrate diet Admission Chief Complaint: had concerns including Other (high glucose). Present on Admission: DKA (diabetic ketoacidoses) PMH/PSH: has a past medical history of DM type 1 (diabetes mellitus, type 1). has no past surgical history on file. GI and Nutrition Related Findings: Symptoms: N/A Difficulty: N/A GI tract alteration: N/A Alternative means of nutrition: N/A General: N/A Medications: Current Facility-Administered Medications: acetaminophen (TYLENOL) tablet 650 mg, 650 mg, Oral, Q8HPRN, rBent Rahman MD azithromycin (ZITHROMAX) 500 mg in NaCl 0.9% (NS) 250 mL VIAL-MATE IV piggyback, 500 mg, IV Piggyback, Q24H ABX, Brent Rahman MD cefTRIAXone (ROCEPHIN) 1,000 mg in NaCl 0.9% (NS) 50 mL MINI-BAG, 1,000 mg, IV Piggyback, Q12H ABX, Brent Rahman MD, 1,000 mg at 06/08/19 1357 insulin glargine (LANTUS U-100) injection 50 Units, 50 Units, Subcutaneous, DAILY, Brent Rahman MD, 50 Units at 06/08/19 1328 NaCl 0.45% (1/2NS) IV infusion 1,000 mL, 1,000 mL, IV Infusion, CONTINUOUS, Brent Rahman MD,Last Rate: 125 mL/hr at 06/08/19 1333, 1,000 mL at 06/08/19 1333 phosphorus (K PHOS NEUTRAL) tablet 2 tablet, 500 mg, Oral, BID, Brent Rahman MD Sliding Scale Insulin - Aspart (NOVOLOG) + Fsbg Testing, , Subcutaneous, TID MEALS+HS, Brent Rahman MD traMADol (ULTRAM) tablet 50 mg, 50 mg, Oral, BIDPRN, Brent Rahman MD, 50 mg at 06/08/19 1342 docusate (COLACE) capsule 100 mg, 100 mg, Oral, BID, Brent Rahman MD, 100 mg at 06/08/19 0808 lactobacillus acidophilus (ACIDOPHILLUS) 25 million cell -100 mg captab 1 tablet, 1 tablet, Oral, BID, Brent Rahman MD, 1 tablet at 06/08/19 0808 ondansetron (ZOFRAN (PF)) injection 4 mg, 4 mg, Slow IV Push, Q6HPRN, Brent Rahman MD Lab and Medical Test Results: NA Date Value 06/08/2019 140 mmol/L 04/05/2012 139 MMOL/L Sodium, Serum-LC (mmol/L) Date Value 09/15/2012 141 K Date Value 06/08/2019 3.8 mmol/L 04/05/2012 4.4 MMOL/L Potassium, Serum-LC (mmol/L) Date Value 09/15/2012 3.9 CALCIUM Date Value 06/08/2019 9.3 mg/dL 04/05/2012 9.5 MG/DL Calcium, Serum-LC (mg/dL) Date Value 09/15/2012 10.0 CL Date Value 06/08/2019 109 mmol/L (H) 04/05/2012 102 MMOL/L Chloride, Serum-LC (mmol/L) Date Value 09/15/2012 100 BUN Date Value 06/08/2019 16 mg/dL 04/05/2012 17 MG/DL BUN-LC (mg/dL) Date Value 09/15/2012 16 CREATININE Date Value 06/08/2019 0.75 mg/dL 04/05/2012 0.48 MG/DL (L) Creatinine, Serum-LC (mg/dL) Date Value 09/15/2012 0.70 (L) GLUCOSE Date Value 06/08/2019 151 mg/dL (H) 04/05/2012 271 MG/DL (H) Glucose, Serum-LC (mg/dL) Date Value 09/15/2012 92 CO2 TOTAL Date Value 06/08/2019 18 mmol/L (L) 04/05/2012 25 MMOL/L Carbon Dioxide, Total-LC (mmol/L) Date Value 09/15/2012 23 ALBUMIN Date Value 06/08/2019 4.7 g/dL 04/05/2012 3.9 G/DL Albumin, Serum-LC (g/dL) Date Value 09/15/2012 4.8 T PROTEIN Date Value 06/08/2019 8.2 g/dL 04/05/2012 6.8 G/DL Protein, Total, Serum-LC (g/dL) Date Value 09/15/2012 7.6 TOTAL BILI Date Value 06/08/2019 0.5 mg/dL 04/05/2012 0.3 MG/DL BILI UNCON Date Value 06/07/2019 0.4 mg/dL 04/05/2012 0.2 MG/DL BILI CONJ Date Value 06/07/2019 0.0 mg/dL 04/05/2012 0.0 MG/DL ALT(SGPT) (U/L) Date Value 10/16/2018 16 04/05/2012 29 ALT (SGPT)-LC (IU/L) Date Value 09/15/2012 14 ALTv (U/L) Date Value 06/08/2019 15 AST(SGOT) (U/L) Date Value 06/08/2019 25 04/05/2012 23 AST (SGOT)-LC (IU/L) Date Value 09/15/2012 22 ALK PHOS (U/L) Date Value 06/08/2019 84 04/05/2012 81 Alkaline Phosphatase, S-LC (IU/L) Date Value 09/15/2012 51 Nutrition Assessment: Age: [age] year old Sex: male Ht: Ht Readings from Last 3 Encounters: 06/07/19 1.854 m (6' 1") 10/17/18 1.854 m (6' 1") 08/14/16 1.854 m (6' 1") Current Wt: Wt Readings from Last 1 Encounters: 06/07/19 129.3 kg (285 lb) BMI: Body mass index is 37.6 kg/m. (Obesity (BMI 30-39.9)) IBW for Ht: 83.63kg +/- 8.36 kg %IBW: 154% Weight History: Wt Readings from Last 10 Encounters: 06/07/19 129.3 kg (285 lb) 10/18/18 120.2 kg (265 lb) 08/14/16 112.4 kg (247 lb 11.2 oz) 08/13/16 112.1 kg (247 lb 3.2 oz) 07/18/13 124.3 kg (274 lb) 06/06/13 124.6 kg (274 lb 11.2 oz) 05/24/13 123.2 kg (271 lb 8 oz) 04/03/13 122.3 kg (269 lb 11.2 oz) 02/20/13 120.2 kg (264 lb 14.4 oz) 01/16/13 121.3 kg (267 lb 6.4 oz) Inflammatory Markers: Elevated WBC and Hyperglycemia Current Dietary Order(s): Orders Placed This Encounter Procedures 1800 Calorie Diabetic Consistent Carbohydrates Diet - includes HS Snack; Texture: Regular EMR Documented Food Allergies/Intolerance/Cultural Preferences: No Known Allergies Nutrition & Diet History: Patient has type 1 diabetes. Glucose on admit was 767 mg/dL, and A1c was 9.6%. He reports having a carbohydrate counting education before & trying to follow a diabetic diet (low carb) at home. Patient received a lunch tray at visit. RD reviewed patient's labs, and will continue to monitor for any a dditional education needs. Education: -The following handouts were left & discussed with the patient: Type 1 Diabetes Nutrition Therapy, and Using Nutrition Labels: Carbohydrates from the Nutrition Care Manual. -RD reviewed topics such as what foods have carbohydrates, how to count carbohydrates, how many to have at each meal/snack, and the importance of keeping carbohydrates consistent throughout the day as well as checking blood sugars & taking insulin as directed. A sample menu was provided. Patient ac knowledged education, and did not have any questions. Calculated Daily Nutritional Needs: Calories: 1607-4909 kcal/day = 15-18 kcal/kg current wt = 25-28 kcal/kg IBW Protein: 16% of kcal need/day = 80-92 g/day = 0.6-0.7 g/kg current wt = 1-1.1 g/ kg IBW Carbohydrates: 55% of kcal need/day = 270-315 g/day (18-21 carbohydrate exchanges/day) Fluid: 4439-3610 mL/day or per MD. Adjust for acute needs. Nutrition Diagnosis: PES #1: Altered nutrition related laboratory values related to type 1 diabetes as evidenced by glucose of 767 mg/dL on admit, and A1c of 9.6% Nutrition Intervention(s): Interventions: 1. Recommend 2000 calorie diabetic consistent carbohydrate diet to better meet patient's calculated needs 2. Provided a diabetic diet education 3. Will monitor diet tolerance, intake, GI function, nutrition related labs, and if there's a need for further nutrition education Goals: 1. The pt's documented intake is no less than 75% of provided meals 2. Target glucose range of 140-180 mg/dL D/C Planning: Carbohydrate consistent diet with 3-5 servings of carbohydrates per meal, and 1-2 servings of carbohydrates per snack. Eat regular meals, monitor blood glucose levels, and have snacks available to help keep carbohydrates consistent throughout the day. Nutrition Monitoring and Evaluation: A registered dietitian will f/u in 5-7 days to report nutrition related information and to revise the recommended nutrition intervention(s) if necessary; please page with questions or concerns, thank-you. Judy Espinoza RD,MK RD Office: [phone] Brent Rahman MD - 06/08/2019 1:03 PM CDT Hospitalist Progress Note SUBJECTIVE: DKA protocol changing to subq insulin and can start diet Feels better than admission Still feels weak Has headache No fevers/chills, cough CURRENT MEDICATIONS - reviewed. Current Facility-Administered Medications Medication Dose Route Frequency Last Rate Last Dose phosphorus (K PHOS NEUTRAL) tablet 2 tablet 500 mg Oral Q4H D5W 0.45% NaCl (1/2NS) IV infusion 1,000 mL 1,000 mL IV Infusion CONTINUOUS 200 mL/hr at 06/08/19 1013 1,000 mL at 06/08/19 1013 docusate (COLACE) capsule 100 mg 100 mg Oral BID 100 mg at 06/08/19 0808 insulin regular human (HUMULIN R) 100 Units in NaCl 0.9% (NS) 100 mL infusion 0.1 Units/kg/hr IV Infusion TITRATE 5.45 mL/hr at 06/08/19 1239 0.043 Units/kg/hr at 06/08/19 1239 lactobacillus acidophilus (ACIDOPHILLUS) 25 million cell -100 mg captab 1 tablet 1 tablet Oral BID 1 tablet at 06/08/19 0808 NaCl 0.9% (NS) IV infusion 1,000 mL 1,000 mL IV Infusion CONTINUOUS Stopped at 06/07/192005 ondansetron (ZOFRAN (PF)) injection 4 mg 4 mg Slow IV Push Q6HPRN PHYSICAL EXAM: BP 130/72 | Pulse 71 | Temp 36.6 C (97.9 F) | Resp 20 | Ht 1.854 m (6' 1") | Wt 129.3 kg (285 lb) | SpO2 99% | BMI 37.60 kg/m Temp: [36.6 C (97.9 F)-37.2 C (99 F)] Heart Rate (monitor): [70-120] Pulse: [71-125] Resp: [9-20] BP: (91-130)/(35-74) MAP (mmHg): [54-86] POCT Blood Glucose (manual): [161 mg/dL-325 mg/dL] Intake/Output Summary (Last 24 hours) at 06/08/2019 1323 Last data filed at 06/08/2019 0600 Gross per 24 hour Intake 5577 ml Output 4700 ml Net 877 ml NAD Anicteric sclera, oral mucosa clear Good air entry b/l RRR, nl s1s2 Abd soft NT No significant LE, no calf tenderness AAO, no gross deficits Skin warm and dry Bilateral knees not red or swollen LABS/IMAGING - reviewed, pertinent results as below: CBC BMP PT/INR WBC x10^3 (/uL) Date Value 04/05/2012 4.6 WBC-LC (x10E3/uL) Date Value 09/15/2012 6.3 WBC (10*3/L) Date Value 06/08/2019 23.79 (H) NA Date Value 06/08/2019 140 mmol/L 04/05/2012 139 MMOL/L Sodium, Serum-LC (mmol/L) Date Value 09/15/2012 141 No results found for: PT RBC x10^6 (/uL) Date Value 04/05/2012 5.34 RBC-LC (x10E6/uL) Date Value 09/15/2012 5.61 RBC (10*6/L) Date Value 06/08/2019 4.89 K Date Value 06/08/2019 3.8 mmol/L 04/05/2012 4.4 MMOL/L Potassium, Serum-LC (mmol/L) Date Value 09/15/2012 3.9 No results found for: PTINR PLT x10^3 (/uL) Date Value 04/05/2012 233 Platelets-LC (x10E3/uL) Date Value 09/15/2012 240 PLT (10*3/L) Date Value 06/08/2019 321 CALCIUM Date Value 06/08/2019 9.3 mg/dL 04/05/2012 9.5 MG/DL Calcium, Serum-LC (mg/dL) Date Value 09/15/2012 10.0 HGB Date Value 06/08/2019 14.7 g/dL 04/05/2012 15.9 G/DL Hemoglobin-LC (g/dL) Date Value 09/15/2012 16.4 CL Date Value 06/08/2019 109 mmol/L (H) 04/05/2012 102 MMOL/L Chloride, Serum-LC (mmol/L) Date Value 09/15/2012 100 aPTT HCT (%) Date Value 06/08/2019 42.6 04/05/2012 45.9 Hematocrit-LC (%) Date Value 09/15/2012 48.7 BUN Date Value 06/08/2019 16 mg/dL 04/05/2012 17 MG/DL BUN-LC (mg/dL) Date Value 09/15/2012 16 No results found for: APTTPAT CREATININE Date Value 06/08/2019 0.75 mg/dL 04/05/2012 0.48 MG/DL (L) Creatinine, Serum-LC (mg/dL) Date Value 09/15/2012 0.70 (L) IMAGING- Hospital Encounter on 06/07/19 XR CHEST 1 VW Narrative HISTORY: DKA. TECHNIQUE: 2 Portable AP view of the chest were obtained. Comparison made with 10/17/2018 study. FINDINGS: No acute pneumonia. No pneumothorax or pleural effusion or pulmonary congestion detected. Cardiac size is within normal limits. CONCLUSIONS: No signs of acute cardiopulmonary disease. HPI: 28 y/o male presented to ER with one day of vomiting, persistent and dyspnea and difficulty catchingbreath. No chest pain, fevers/chills, sick contacts, abd apin, dysuria. Last DKA admission was here in October 2018. He says he's been compliant with his insulin. ASSESSMENT/PLAN Esa sEquivel Jr. is a 28 year old male with DKA ENRIQUETA Hyperkalemia Acute respiratory distress Anion gap metabolic acidsos Severe dehydration Severe leukocytosis, check diff consult Uncontrolled IDDM with hyperglycemia, A1c 9.6, takes tresiba 46 units QAM, novolog sliding scale Anxiety, insomnia, trazodone prn Depression zoloft 100 mg qd Morbid Obesity Not taking hiv prophylaxis anymore Thrombocytosis hypophosphatemia DKA protocol, will switch to long acting and start diet Start lantus 50 units in AM Procal 0.99, repeat again in AM to see trend F/u diff consult, cultures Wbc improving, was very high on admission Empiric abx started - Ceftriaxone, azithromycin day 2 ID consult, unclear source of infection CXR no acute pathology IVF ENRIQUETA resolved Nephrology consult Dr. Morris dvt proph SCD Full Code Dispo - home likely tomorrow if cultures are negative and patient tolerating diet documented in this encounter Plan of Treatment Name Type Priority Associated Diagnoses Date/Ti me BLOOD CULTURE SCREEN LAB STAT Diabetic ketoacidosi s 06/07/2019 12:11 PM CDT without coma associated with other specified diabetes mellitu s Leukocytosis, unspecified type BLOOD CULTURE SCREEN LAB STAT Diabetic ketoacidosi s 06/07/2019 11:54 AM CDT without coma associated with other specified diabetes mellitu s Leukocytosis, unspecified type THROAT CULTURE LAB Routine 06/09/2019 8 :28 PM CDT Name Type Priority Associated Diagnoses Order S chedule POCT GLUCOSE(AGE LAB JENNIFER Diabetic ketoacidosis EV KIKA HOUR (START >30DAYS) without coma TIME ADJUSTABLE ) for associated with other 1 Occu rrences specified diabetes starting 06/07/2019 mellitus until 0 EKG-12 LEAD ROUTINE HEART STATION JENNIFER ONCE fo r 1 Occurrences sta rting 06/07/2019 unti l 06/07/2019 CBC WITH DIFF LAB Routine EVERY MORNING AT 0500 for 3 Days starting 2019 until 0, 1 completed CBC WITH DIFFERENTIAL LAB Routine Once f or 1 Occurrences sta rting 06/09/2019 unti l 06/09/2019 THROAT CULTURE LAB Routine ONCE for 1 Occurrences sta rting 06/09/2019 unti l 06/09/2019 EKG-12 LEAD ROUTINE HEART STATION Routine ONCE fo r 1 Occurrences sta rting 06/10/2019 unti l 06/10/2019 Health Maintenance Due Date Last Done Comments VARICELLA VACCINES (1 of 2 - 08/18/1991 2-dose childhood series) PNEUMOCOCCAL 0-64 YEARS COMBINED 1996 SERIES (1 of 1 - PPSV23) DTaP,Tdap,and Td Vaccines (1 - 2001 Tdap) URINE MICROALBUMIN 05/24/2014 05/24/2013, 06/20/2012 EYE EXAM 07/18/2014 07/18/2013, 07/18/2013 FOOT EXAM 08/14/2017 08/14/2016, 08/14/2016, 05/24/2013 INFLUENZA VACCINE (Season Ended) 2019 10/20/2017 HgA1C 12/07/2019 06/07/2019, 10/16/2018, 05/24/2013, Additional history exists LDL-C 06/06/2020 06/07/2019, 10/17/2018, 01/16/2013, Additional history exists CREATININE (SERUM) 06/08/2020 06/09/2019, 06/08/2019, 06/08/2019, Additional history exists documented as of this encounter Procedures Procedure Name Priority Date/Time Associated Comments Diagnosis POCT GLUCOSE Routine 06/10/2019 4:31 Results for this (AUTOMATED) PM CDT procedure are i n the results section. BASIC METABOLIC PANEL Routine 06/10/2019 3:04 Re sults for this (NA, K, CL, CO2, PM CDT procedure a re in GLUCOSE, BUN, the results CREATININE, CA) section. MAGNESIUM Routine 06/10/2019 3:04 Results for this PM CDT procedure are i n the results section. PHOSPHORUS Routine 06/10/2019 3:04 Results for this PM CDT procedure are i n the results section. POCT GLUCOSE Routine 06/10/2019 10:43 Results for this (AUTOMATED) AM CDT procedure are i n the results section. POCT GLUCOSE Routine 06/10/2019 7:09 Results for this (AUTOMATED) AM CDT procedure are i n the results section. POCT GLUCOSE Routine 06/10/2019 6:44 Results for this (AUTOMATED) AM CDT procedure are i n the results section. CBC WITH DIFFERENTIAL Routine 06/10/2019 3:51 Re sults for this AM CDT procedure are i n the results section. CBC WITH DIFFERENTIAL Routine 06/10/2019 3:51 Re sults for this AM CDT procedure are i n the results section. COMP. METABOLIC PANEL Routine 06/10/2019 3:50 Re sults for this (60213) AM CDT procedure are i n the results section. MAGNESIUM Routine 06/10/2019 3:50 Results for this AM CDT procedure are i n the results section. PHOSPHORUS Routine 06/10/2019 3:50 Results for this AM CDT procedure are i n the results section. GALV ONLY - INFLUENZA Routine 06/09/2019 8:28 Re sults for this A B RSV PCR PM CDT procedure are i n the results section. POCT GLUCOSE Routine 06/09/2019 8:06 Results for this (AUTOMATED) PM CDT procedure are i n the results section. POCT GLUCOSE Routine 06/09/2019 4:21 Results for this (AUTOMATED) PM CDT procedure are i n the results section. POCT GLUCOSE Routine 06/09/2019 11:05 Results for this (AUTOMATED) AM CDT procedure are i n the results section. POCT GLUCOSE Routine 06/09/2019 7:17 Results for this (AUTOMATED) AM CDT procedure are i n the results section. COMP. METABOLIC PANEL Routine 06/09/2019 5:19 Re sults for this (12138) AM CDT procedure are i n the results section. POCT GLUCOSE Routine 06/09/2019 2:25 Results for this (AUTOMATED) AM CDT procedure are i n the results section. POCT GLUCOSE Routine 06/08/2019 8:58 Results for this (AUTOMATED) PM CDT procedure are i n the results section. URINE CULTURE Routine 06/08/2019 6:34 Results fo r this PM CDT procedure are i n the results section. URINALYSIS Routine 06/08/2019 6:34 Results for this PM CDT procedure are i n the results section. PROCALCITONIN JENNIFER 06/08/2019 2:14 Results fo r this PM CDT procedure are i n the results section. BASIC METABOLIC PANEL JENNIFER 06/08/2019 2:14 Re sults for this (NA, K, CL, CO2, PM CDT procedure a re in GLUCOSE, BUN, the results CREATININE, CA) section. LACTIC ACID WHOLE STAT 06/08/2019 2:13 Result s for this BLOOD PM CDT procedure are i n the results section. POCT GLUCOSE Routine 06/08/2019 1:28 Results for this (AUTOMATED) PM CDT procedure are i n the results section. POCT GLUCOSE Routine 06/08/2019 12:37 Results for this (AUTOMATED) PM CDT procedure are i n the results section. POCT GLUCOSE Routine 06/08/2019 12:01 Results for this (AUTOMATED) PM CDT procedure are i n the results section. POCT GLUCOSE Routine 06/08/2019 11:33 Results for this (AUTOMATED) AM CDT procedure are i n the results section. POCT GLUCOSE Routine 06/08/2019 10:28 Results for this (AUTOMATED) AM CDT procedure are i n the results section. POCT GLUCOSE Routine 06/08/2019 9:32 Results for this (AUTOMATED) AM CDT procedure are i n the results section. POCT GLUCOSE Routine 06/08/2019 8:32 Results for this (AUTOMATED) AM CDT procedure are i n the results section. POCT GLUCOSE Routine 06/08/2019 7:24 Results for this (AUTOMATED) AM CDT procedure are i n the results section. POCT GLUCOSE Routine 06/08/2019 6:11 Results for this (AUTOMATED) AM CDT procedure are i n the results section. CBC WITH DIFFERENTIAL Routine 06/08/2019 5:43 Re sults for this AM CDT procedure are i n the results section. CBC WITH DIFFERENTIAL Routine 06/08/2019 5:43 Re sults for this AM CDT procedure are i n the results section. ACUTE CARE VENOUS Routine 06/08/2019 5:43 Result s for this BLOOD GAS AM CDT procedure are i n the results section. COMP. METABOLIC PANEL Routine 06/08/2019 5:43 Re sults for this (94709) AM CDT procedure are i n the results section. MAGNESIUM Routine 06/08/2019 5:43 Results for this AM CDT procedure are i n the results section. PHOSPHORUS Routine 06/08/2019 5:43 Results for this AM CDT procedure are i n the results section. POCT GLUCOSE Routine 06/08/2019 5:39 Results for this (AUTOMATED) AM CDT procedure are i n the results section. POCT GLUCOSE Routine 06/08/2019 5:11 Results for this (AUTOMATED) AM CDT procedure are i n the results section. POCT GLUCOSE Routine 06/08/2019 4:04 Results for this (AUTOMATED) AM CDT procedure are i n the results section. POCT GLUCOSE Routine 06/08/2019 3:24 Results for this (AUTOMATED) AM CDT procedure are i n the results section. POCT GLUCOSE Routine 06/08/2019 2:02 Results for this (AUTOMATED) AM CDT procedure are i n the results section. BASIC METABOLIC PANEL Routine 06/08/2019 12:59 Re sults for this (NA, K, CL, CO2, AM CDT procedure a re in GLUCOSE, BUN, the results CREATININE, CA) section. POCT GLUCOSE Routine 06/08/2019 12:57 Results for this (AUTOMATED) AM CDT procedure are i n the results section. POCT GLUCOSE Routine 06/08/2019 12:15 Results for this (AUTOMATED) AM CDT procedure are i n the results section. ACUTE CARE VENOUS Routine 06/07/2019 11:27 Result s for this BLOOD GAS PM CDT procedure are i n the results section. POCT GLUCOSE Routine 06/07/2019 11:24 Results for this (AUTOMATED) PM CDT procedure are i n the results section. POCT GLUCOSE Routine 06/07/2019 9:49 Results for this (AUTOMATED) PM CDT procedure are i n the results section. POCT GLUCOSE Routine 06/07/2019 9:09 Results for this (AUTOMATED) PM CDT procedure are i n the results section. POCT GLUCOSE Routine 06/07/2019 8:58 Results for this (AUTOMATED) PM CDT procedure are i n the results section. POCT GLUCOSE Routine 06/07/2019 7:54 Results for this (AUTOMATED) PM CDT procedure are i n the results section. POCT GLUCOSE Routine 06/07/2019 7:02 Results for this (AUTOMATED) PM CDT procedure are i n the results section. ACUTE CARE VENOUS Routine 06/07/2019 6:49 Result s for this BLOOD GAS PM CDT procedure are i n the results section. CBC WITH DIFFERENTIAL Routine 06/07/2019 6:48 Re sults for this PM CDT procedure are i n the results section. DIFF CONSULT Routine 06/07/2019 6:48 Results for this INTERPRETATION PM CDT procedure are in the results section. CBC WITH DIFFERENTIAL Routine 06/07/2019 6:48 Re sults for this PM CDT procedure are i n the results section. DIFF CONSULT Routine 06/07/2019 6:48 Results for this INTERPRETATION PM CDT procedure are in the results section. BASIC METABOLIC PANEL Routine 06/07/2019 6:48 Re sults for this (NA, K, CL, CO2, PM CDT procedure a re in GLUCOSE, BUN, the results CREATININE, CA) section. POCT GLUCOSE Routine 06/07/2019 6:01 Results for this (AUTOMATED) PM CDT procedure are i n the results section. POCT GLUCOSE Routine 06/07/2019 5:04 Results for this (AUTOMATED) PM CDT procedure are i n the results section. POCT GLUCOSE Routine 06/07/2019 4:04 Results for this (AUTOMATED) PM CDT procedure are i n the results section. PROCALCITONIN JENNIFER 06/07/2019 3:30 Results fo r this PM CDT procedure are i n the results section. COMP. METABOLIC PANEL JENNIFER 06/07/2019 3:30 Re sults for this (41187) PM CDT procedure are i n the results section. OSMOLALITY SERUM STAT 06/07/2019 3:30 Results for this PM CDT procedure are i n the results section. POCT GLUCOSE Routine 06/07/2019 2:26 Results for this (AUTOMATED) PM CDT procedure are i n the results section. AC PANEL 21 + LACTIC JENNIFER 06/07/2019 2:04 Res ults for this ACID PM CDT procedure are i n the results section. CBC WITH DIFFERENTIAL JENNIFER 06/07/2019 2:03 Re sults for this PM CDT procedure are i n the results section. CBC WITH DIFFERENTIAL JENNIFER 06/07/2019 2:03 Re sults for this PM CDT procedure are i n the results section. POCT GLUCOSE Routine 06/07/2019 12:34 Results for this (AUTOMATED) PM CDT procedure are i n the results section. URINE CULTURE STAT 06/07/2019 12:20 Diabetic Results fo r this PM CDT ketoacidosis procedure are i n without coma the results associated with section. other specified diabetes mellitu s Leukocytosis, unspecified type URINALYSIS STAT 06/07/2019 12:20 Diabetic Results for this PM CDT ketoacidosis procedure are i n without coma the results associated with section. other specified diabetes mellitus BLOOD CULTURE SCREEN STAT 06/07/2019 12:11 Diabetic PM CDT ketoacidosis without coma associated with other specified diabetes mellitu s Leukocytosis, unspecified type XR CHEST 1 VW STAT 06/07/2019 12:01 Diabetic Results fo r this PM CDT ketoacidosis procedure are i n without coma the results associated with section. other specified diabetes mellitu s Leukocytosis, unspecified type CRITICAL CARE Routine 06/07/2019 12:00 Results fo r this PM CDT procedure are i n the results section. LIPID PANEL JENNIFER Add-On 06/07/2019 11:55 Results for this (10002)(TOTAL AM CDT procedure are in CHOLESTEROL, the results TRIGLYCERIDES, HDL) section. BASIC METABOLIC PANEL STAT 06/07/2019 11:55 Diabetic Re sults for this (NA, K, CL, CO2, AM CDT ketoacidosis procedure a re in GLUCOSE, BUN, without coma the results CREATININE, CA) associated with section. other specified diabetes mellitus HEPATIC FUNCTION PANEL STAT Add-On 06/07/2019 11:55 Diabetic R esults for this (31423) AM CDT ketoacidosis procedure are i n (ALB,T.PRO,BILI without coma the results T,BU/BC,ALT,AST,ALK associated with secti on. PHOS) other specified diabetes mellitus MAGNESIUM STAT 06/07/2019 11:55 Diabetic Results for this AM CDT ketoacidosis procedure are i n without coma the results associated with section. other specified diabetes mellitus LIPASE STAT Add-On 06/07/2019 11:55 Diabetic Results for this AM CDT ketoacidosis procedure are i n without coma the results associated with section. other specified diabetes mellitu s Leukocytosis, unspecified type URIC ACID JENNIFER Add-On 06/07/2019 11:55 Results for this AM CDT procedure are i n the results section. PHOSPHORUS STAT 06/07/2019 11:55 Diabetic Results for this AM CDT ketoacidosis procedure are i n without coma the results associated with section. other specified diabetes mellitus BETA HYDROXY-BUTYRATE STAT 06/07/2019 11:54 Diabetic Re sults for this AM CDT ketoacidosis procedure are i n without coma the results associated with section. other specified diabetes mellitus OSMOLALITY SERUM STAT 06/07/2019 11:54 Diabetic Results for this AM CDT ketoacidosis procedure are i n without coma the results associated with section. other specified diabetes mellitus BLOOD CULTURE SCREEN STAT 06/07/2019 11:54 Diabetic AM CDT ketoacidosis without coma associated with other specified diabetes mellitu s Leukocytosis, unspecified type LACTIC ACID WHOLE STAT 06/07/2019 11:49 Diabetic Result s for this BLOOD AM CDT ketoacidosis procedure are i n without coma the results associated with section. other specified diabetes mellitu s Leukocytosis, unspecified type ACUTE CARE VENOUS STAT 06/07/2019 11:49 Diabetic Result s for this BLOOD GAS AM CDT ketoacidosis procedure are i n without coma the results associated with section. other specified diabetes mellitus POCT GLUCOSE Routine 06/07/2019 11:22 Results for this (AUTOMATED) AM CDT procedure are i n the results section. BASIC METABOLIC PANEL STAT 06/07/2019 11:02 Diabetic Re sults for this (NA, K, CL, CO2, AM CDT ketoacidosis procedure a re in GLUCOSE, BUN, without coma the results CREATININE, CA) associated with section. other specified diabetes mellitus CORONAVIRUS COVID-19 STAT 06/07/2019 10:35 Diabetic Res ults for this TESTING AM CDT ketoacidosis procedure are i n without coma the results associated with section. other specified diabetes mellitus CBC WITH DIFFERENTIAL STAT 06/07/2019 10:35 Diabetic Re sults for this AM CDT ketoacidosis procedure are i n without coma the results associated with section. other specified diabetes mellitus GLYCOSYLATED STAT 06/07/2019 10:35 Diabetic Results for this HEMOGLOBIN (A1C) AM CDT ketoacidosis procedure a re in without coma the results associated with section. other specified diabetes mellitus CBC WITH DIFFERENTIAL Routine 06/07/2019 10:35 Diabetic Re sults for this AM CDT ketoacidosis procedure are i n without coma the results associated with section. other specified diabetes mellitus POCT GLUCOSE Routine 06/07/2019 10:18 Results for this (AUTOMATED) AM CDT procedure are i n the results section. documented in this encounter Results POCT GLUCOSE (AUTOMATED) (06/10/2019 4:31 PM CDT) Pathologist Sig nature POCT GLU 229 (H) 70 - 110 mg/dL [facility] Specimen Blood Performing Organization Address [facility] Phone Number [facility] CLIA: [id number], [address] [place] [address] PHOSPHORUS (06/10/2019 3:04 PM CDT) Pathologist Sig nature PHOSPHORUS 1.8 (L) 2.5 - 5.0 mg/dL [facility] Specimen Blood - ARM, LEFT Performing Organization Address [facility] Phone Number [facility] CLIA: [id number], [address] [place] [address] MAGNESIUM (06/10/2019 3:04 PM CDT) Pathologist Sig nature MAGNESIUM 2.4 1.7 - 2.4 mg/dL [facility] Specimen Blood - ARM, LEFT Performing Organization Address [facility] Phone Number [facility] CLIA: [id number], [address] [place] [address] BASIC METABOLIC PANEL (NA, K, CL, CO2, GLUCOSE, BUN, CREATININE, CA) (06/10/2019 3:04 PM CDT) NA 135 135 - 145 [facility] mmol/L [facility] K 4.3 3.5 - 5.0 [facility] mmol/L [facility] CL 99 98 - 108 mmol/L [facility] CO2 TOTAL 27 23 - 31 mmol/L [facility] AGAP 9 2 - 16 [facility] BUN 12 7 - 23 mg/dL [facility] GLUCOSE 272 (H) 70 - 110 mg/dL [facility] CREATININE 0.57 (L) 0.60 - 1.25 [facility] mg/dL [facility] CALCIUM 9.2 8.6 - 10.6 [facility] mg/dL [facility] eGFR Calculation 170.2 mL/min/1.73m2 [facility] (Non[facility] [place]) eGFR Calculation 206.3 mL/min/1.73m2 [facility] () [facility] Specimen Blood - ARM, LEFT Narrative Performed At [facility] Glomerular Filtration Rate (GFR) [facility] and Staging of Kidney Disease* + + +- + | GFR (mL/min/1.73 m2) | With Kidney Damage | Without Kidney Damage + + +- + | >90 | Stage one | Normal + + +- + | 60-89 | Stage two | Decreased GFR + + +- + | 30-59 | Stage three | Stage three + + +- + | 15-29 | Stage four | Stage four + + +- + | <15 (or dialysis) | Stage five | Stage five + + +- + *Each stage assumes the associated GFR level has been in effect for at least three months. Stages 1 to 5, with or without kidney disease, indicate chronic kidney disease. Notes: Determination of stages one and two (with eGFR >59mL/min/1.73 m2) requires estimation of kidney damage for at least three months as defined by structural or functional abnormalities of the kidney, manifested by either: Pathological abnormalities or Markers of kidney damage (including abnormalities in the composition of the blood or urine or abnormalities in imaging tests). Performing Organization Address City/State/Zipcode Phone Number [facility] CLIA: [id number], [address] [place], [place] [address] POCT GLUCOSE (AUTOMATED) (06/10/2019 10:43 AM CDT) [facility] POCT GLU 248 (H) 70 - 110 mg/dL [facility] Specimen Blood Performing Organization Address [facility] Phone Number [facility] CLIA: [id number], [address] [address] POCT GLUCOSE (AUTOMATED) (06/10/2019 7:09 AM CDT) Pathologist Sig nature POCT GLU 127 (H) 70 - 110 mg/dL [facility] Specimen Blood Performing Organization Address City/[facility] Phone Number [facility] CLIA: [id number], [address] [place] [address] POCT GLUCOSE (AUTOMATED) (06/10/2019 6:44 AM CDT) Pathologist Sig [facility] POCT GLU 107 70 - 110 mg/dL [facility] Specimen Blood Performing Organization Address [facility] Phone Number [facility] CLIA: [id number], [address] [place] [address] CBC WITH DIFFERENTIAL (06/10/2019 3:51 AM CDT) Pathologist Sig [facility] WBC 8.14 4.20 - 10.70 [facility] 10*3/L [facility] RBC 3.99 (L) 4.26 - 5.52 [facility] 10*6/L [facility] HGB 11.8 (L) 12.2 - 16.4 [facility] g/dL [facility] HCT 34.5 (L) 38.4 - 49.3 % [facility] MCV 86.5 81.7 - 95.6 fL [facility] MCH 29.6 26.1 - 32.7 pg [facility] MCHC 34.2 31.2 - 35.0 [facility] g/dL [facility] RDW-SD 40.4 38.5 - 51.6 fL [facility] RDW-CV 12.7 12.1 - 15.4 % [facility] PLT 262 150 - 328 [facility] 10*3/L [facility] MPV 11.3 9.8 - 13.0 fL [facility] NRBC/100 WBC 0.0 0.0 - 10.0 /100 [facility] WBCs [facility] NRBC x10^3 <0.01 10*3/L [facility] GRAN MAT (NEUT) % 57.9 % [facility] IMM GRAN % 0.40 % [facility] LYMPH % 33.9 % [facility] MONO % 7.5 % [facility] EOS % 0.2 % [facility] BASO % 0.1 % [facility] GRAN MAT x10^3(ANC) 4.71 1.99 - 6.95 [facility] 10*3/uL [facility] IMM GRAN x10^3 0.03 0.00 - 0.06 [facility] 10*3/uL [facility] LYMPH x10^3 2.76 1.09 - 3.23 [facility] 10*3/uL [facility] MONO x10^3 0.61 0.36 - 1.02 [facility] 10*3/uL [facility] EOS x10^3 <0.03 (L) 0.06 - 0.53 [facility] 10*3/uL [facility] BASO x10^3 <0.03 0.01 - 0.09 [facility] 10*3/uL [facility] Specimen Blood - WRIST, RIGHT Performing Organization Address [facility] Phone Number [facility] CLIA: [id number], [address] [place] PHOSPHORUS (06/10/2019 3:50 AM CDT) Pathologist Sig nature PHOSPHORUS 1.4 (L) 2.5 - 5.0 mg/dL [facility] Specimen Blood - WRIST, RIGHT Performing Organization Address [facility] Phone Number [facility] CLIA: [id number], [address] [place] [address] MAGNESIUM (06/10/2019 3:50 AM CDT) Pathologist Sig nature MAGNESIUM 1.4 (L) 1.7 - 2.4 mg/dL [facility] Specimen Blood - WRIST, RIGHT Performing Organization Address [facility] Phone Number [facility] CLIA: [id number], [address] [place], [place] [address] COMP. METABOLIC PANEL ([id number]) (06/10/2019 3:50 AM CDT) NA 142 135 - 145 [facility] mmol/L [facility] K 2.2 (LL) 3.5 - 5.0 [facility] mmol/L [facility] CL 121 (H) 98 - 108 mmol/L [facility] CO2 TOTAL 15 (L) 23 - 31 mmol/L [facility] AGAP 6 2 - 16 [facility] BUN 5 (L) 7 - 23 mg/dL [facility] GLUCOSE 55 (L) 70 - 110 mg/dL [facility] CREATININE 0.26 (L) 0.60 - 1.25 [facility] mg/dL [facility] TOTAL BILI 0.6 0.1 - 1.1 mg/dL [facility] CALCIUM 4.9 (LL) 8.6 - 10.6 [facility] mg/dL [facility] T PROTEIN 4.0 (L) 6.3 - 8.2 g/dL [facility] ALBUMIN 1.8 (L) 3.5 - 5.0 g/dL [facility] ALK PHOS 31 (L) 34 - 122 U/L [facility] ALTv 7 5 - 50 U/L [facility] AST(SGOT) 35 13 - 40 U/L [facility] eGFR Calculation 421.1 mL/min/1.73m2 [facility] [place]) eGFR Calculation 510.4 mL/min/1.73m2 [facility] ([facility]) [facility] Specimen Blood - WRIST, RIGHT Narrative Performed At [facility] Glomerular Filtration Rate (GFR) [facility] and Staging of Kidney Disease* + + +- + | GFR (mL/min/1.73 m2) | With Kidney Damage | Without Kidney Damage + + +- + | >90 | Stage one | Normal + + +- + | 60-89 | Stage two | Decreased GFR + + +- + | 30-59 | Stage three | Stage three + + +- + | 15-29 | Stage four | Stage four + + +- + | <15 (or dialysis) | Stage five | Stage five + + +- + *Each stage assumes the associated GFR level has been in effect for at least three months. Stages 1 to 5, with or without kidney disease, indicate chronic kidney disease. Notes: Determination of stages one and two (with eGFR >59mL/min/1.73 m2) requires estimation of kidney damage for at least three months as defined by structural or functional abnormalities of the kidney, manifested by either: Pathological abnormalities or Markers of kidney damage (including abnormalities in the composition of the blood or urine or abnormalities in imaging tests). Performing Organization Address [facility] Phone Number [facility] CLIA: [id number], [address] [place] [address] GALV ONLY - INFLUENZA A B RSV PCR (06/09/2019 8:28 PM CDT) Pathologist Sig nature Influenza A virus by Negative Negative [facility] Influenza B virus by Negative Negative [facility] RSV by PCR Negative Negative [facility] Specimen Swab - THROAT Performing Organization Address [facility] Phone Number [facility] CLIA: [id number], [address] [place] [address] [address] [facility] POCT GLUCOSE (AUTOMATED) (06/09/2019 8:06 PM CDT) Pathologist Sig nature POCT GLU 211 (H) 70 - 110 mg/dL [facility] Specimen Blood Performing Organization Address [facility] Number [facility] CLIA: [id number], [address] POCT GLUCOSE (AUTOMATED) (06/09/2019 4:21 PM CDT) Pathologist Sig nature POCT GLU 220 (H) 70 - 110 mg/dL [facility] Specimen Blood Performing Organization Address [facility] Phone Number [facility] CLIA: [id number], [address] [place] [address] POCT GLUCOSE (AUTOMATED) (06/09/2019 11:05 AM CDT) Pathologist Sig nature POCT GLU 265 (H) 70 - 110 mg/dL [facility] Specimen Blood Performing Organization Address City/State/Zipcode Phone Number [facility] CLIA: [id number], [address] [place], [place] [address] POCT GLUCOSE (AUTOMATED) (06/09/2019 7:17 AM CDT) Pathologist Sig nature POCT GLU 251 (H) 70 - 110 mg/dL [facility] Specimen Blood Performing Organization Address City/State/Zipcode Phone Number [facility] CLIA: [id number], [address] [place], [place] [address] COMP. METABOLIC PANEL ([id number]) (06/09/2019 5:19 AM CDT) NA 135 135 - 145 [facility] mmol/L [facility] K 3.1 (L) 3.5 - 5.0 [facility] mmol/L [facility] CL 111 (H) 98 - 108 mmol/L [facility] CO2 TOTAL 14 (L) 23 - 31 mmol/L [facility] AGAP 10 2 - 16 [facility] BUN 7 7 - 23 mg/dL [facility] GLUCOSE 211 (H) 70 - 110 mg/dL [facility] CREATININE 0.37 (L) 0.60 - 1.25 [facility] mg/dL [facility] TOTAL BILI 0.4 0.1 - 1.1 mg/dL [facility] CALCIUM 6.5 (L) 8.6 - 10.6 [facility] mg/dL [facility] T PROTEIN 4.9 (L) 6.3 - 8.2 g/dL [facility] ALBUMIN 2.5 (L) 3.5 - 5.0 g/dL [facility] ALK PHOS 46 34 - 122 U/L [facility] ALTv 9 5 - 50 U/L [facility] AST(SGOT) 20 13 - 40 U/L [facility] eGFR Calculation 280.3 mL/min/1.73m2 [facility] ([facility] [place]) eGFR Calculation 339.7 mL/min/1.73m2 [facility] () [facility] Specimen Blood - ARM, RIGHT Narrative Performed At [facility] Glomerular Filtration Rate (GFR) [facility] and Staging of Kidney Disease* + + +- + | GFR (mL/min/1.73 m2) | With Kidney Damage | Without Kidney Damage + + +- + | >90 | Stage one | Normal + + +- + | 60-89 | Stage two | Decreased GFR + + +- + | 30-59 | Stage three | Stage three + + +- + | 15-29 | Stage four | Stage four + + +- + | <15 (or dialysis) | Stage five | Stage five + + +- + *Each stage assumes the associated GFR level has been in effect for at least three months. Stages 1 to 5, with or without kidney disease, indicate chronic kidney disease. Notes: Determination of stages one and two (with eGFR >59mL/min/1.73 m2) requires estimation of kidney damage for at least three months as defined by structural or functional abnormalities of the kidney, manifested by either: Pathological abnormalities or Markers of kidney damage (including abnormalities in the composition of the blood or urine or abnormalities in imaging tests). Performing Organization Address [facility] Phone Number [facility] CLIA: [id number], [address] [place] [address] POCT GLUCOSE (AUTOMATED) (06/09/2019 2:25 AM CDT) Pathologist Sig nature POCT GLU 229 (H) 70 - 110 mg/dL [facility] Specimen Blood Performing Organization Address [facility] Phone Number [facility] CLIA: [id number], [address] [address] POCT GLUCOSE (AUTOMATED) (06/08/2019 8:58 PM CDT) Pathologist Sig nature POCT GLU 225 (H) 70 - 110 mg/dL [facility] Specimen Blood Performing Organization Address [facility] Phone Number [facility] CLIA: [id number], [address] [place] [address] URINE CULTURE (06/08/2019 6:34 PM CDT) Pathologist Sig nature URINE CULTURE No aerobic growth [facility] (< 1000 CFU/mL) SERVICES Specimen Urine - URINE, CLEAN CATCH Performing Organization Address [facility] Phone Number [facility] CLIA: [id number], [address] [place], [place] [address] [address] [facility] URINALYSIS (06/08/2019 6:34 PM CDT) Pathologist Sig [facility] APPEARANCE Hazy (A) Clear [facility] COLOR Yellow Yellow [facility] PH 6.0 4.8 - 8.0 [facility] SP GRAVITY 1.017 1.003 - 1.030 [facility] GLU U QUAL 500 mg/dL (A) Normal [facility] BLOOD 3+ (A) Negative [facility] KETONES 80 mg/dL (A) Negative [facility] PROTEIN Negative Negative [facility] UROBILIN Normal Normal [facility] BILIRUBIN Negative Negative [facility] NITRITE Negative Negative [facility] LEUK AIMEE 500/uL (A) Negative [facility] RBC/HPF 41 (H) 0 - 3 HPF [facility] WBC/HPF 54 (H) 0 - 5 HPF [facility] BACTERIA Moderate (A) Negative [facility] MUCOUS Slight (A) Negative LPF [facility] SQ EPITH 1 HPF [facility] Specimen Urine - URINE, CLEAN CATCH Performing Organization Address City/State/Zipcode Phone Number [facility] CLIA: [id number], [address] [place], [place] [address] PROCALCITONIN (06/08/2019 2:14 PM CDT) Pathologist Sig nature Procalcitonin 0.65 (H) <0.07 ng/mL [facility] Specimen Blood - ARM, LEFT Narrative Performed At INTERPRETATION OF PROCALCITONIN RESULTS IN ADULTS >= 1 8 [facility] YEARS OF AGE Initiation and discontinuation of antibiotics on patie nts with suspected or confirmed Lower Respiratory Tract Infection in Adults >= 18 years of age. + + + +----- ------ + |Procalcitonin |Interpretation |Antibiotic |Considerations |ng/mL | |recommend ation | + + + +----- ------ + | <0.1 | Bacterial | Strongly | | | infection very | discouraged | Overruling: | | unlikely | | Clinically unstable + + + + H igh risk for adverse | <0.25 | Bacterial | Discouraged | outcome | | infection | | SEE IMPORTANT NOTE | | unlikely | | + + + +----- ------ + | >=0.25 | Bacterial | Encouraged | | | infection | | | | likely | | Consider treatment failure + + + + if l evels does not decrease | >0.5 | Bacterial | Strongly | appropriately | | infection very | encouraged | | | likely | | + + + +----- ------ + Discontinuation of antibiotics in high-acuity patients with suspected or confirmed sepsis in Adults >= 18 years of age. + + + +----- ------ + |Procalcitonin |Interpretation |Antibiotic |Considerations |ng/mL | |recommend ation | + + + +----- ------ + | <0.25 | Bacterial | Strongly | | | infection very | discouraged | Overruling: | | unlikely | | Clinically unstable + + + + H igh risk for adverse | <0.5 or drop | Bacterial | Discouraged | outcome | >80% from | infection | | SEE IMPORTANT NOTE | highest PCT | unlikely | | | level | | | + + + +----- ------ + | >=0.5 | Bacterial | Encouraged | | | infection | | | | likely | | Consider treatment failure + + + + if l evels does not decrease | >1.0 | Bacterial | Strongly | appropriately | | infection very | encouraged | | | likely | | + + + +----- ------ + Percentage of drop of Procalcitonin calculation for Discontinuation of antibiotics in high-acuity patients with suspected or confirmed sepsis in Adults >= 18 years of age. Procalcitonin highest{}-Procalcitonin current{} Delta Procalcitonin = x100% Procalcitonin current {} IMPORTANT NOTE: Procalcitonin may be elevated without bacterial infection by physiologic stress related to t rauma, colby, chronic dialysis, metastatic cancer, surgery in the past seven days, malaria, some fungal infections, and some forms of vasculitis. The interpretation algorithm may not apply to patients with immunosuppression (equivalent o f >10 mg of prednisone daily), HIV with CD4 cell count < 350 cells/mm3, active malignancy on systemic chemotherapy, solid organ transplant or [facility], or hospital acquired pneumonia. Additionally, some cli nical trials of procalcitonin have excluded patients with sh ock requiring vasopressor use, acute respiratory failure requiring mechanical ventilation, or those with known lung abscess/empyema. For further information please refer to: [email or web address] Performing Organization Address City/State/Zipcode Phone Number [facility] CLIA: [id number], [address] [place] [address] [address] [facility] BASIC METABOLIC PANEL (NA, K, CL, CO2, GLUCOSE, BUN, CREATININE, CA) (06/08/2019 2:14 PM CDT) NA 136 135 - 145 [facility] mmol/L [facility] K 4.0 3.5 - 5.0 [facility] mmol/L [facility] CL 107 98 - 108 mmol/L [facility] CO2 TOTAL 17 (L) 23 - 31 mmol/L [facility] AGAP 12 2 - 16 [facility] BUN 12 7 - 23 mg/dL [facility] GLUCOSE 210 (H) 70 - 110 mg/dL [facility] CREATININE 0.56 (L) 0.60 - 1.25 [facility] mg/dL [facility] CALCIUM 9.0 8.6 - 10.6 [facility] mg/dL [facility] eGFR Calculation 173.7 mL/min/1.73m2 [facility] (Non[facility] LABORATORY [place]) eGFR Calculation 210.6 mL/min/1.73m2 [facility] () [facility] Specimen Blood - ARM, LEFT Narrative Performed At Association of Glomerular Filtration Rate (GFR) [facility] and Staging of Kidney Disease* + + +- + | GFR (mL/min/1.73 m2) | With Kidney Damage | Without Kidney Damage + + +- + | >90 | Stage one | Normal + + +- + | 60-89 | Stage two | Decreased GFR + + +- + | 30-59 | Stage three | Stage three + + +- + | 15-29 | Stage four | Stage four + + +- + | <15 (or dialysis) | Stage five | Stage five + + +- + *Each stage assumes the associated GFR level has been in effect for at least three months. Stages 1 to 5, with or without kidney disease, indicate chronic kidney disease. Notes: Determination of stages one and two (with eGFR >59mL/min/1.73 m2) requires estimation of kidney damage for at least three months as defined by structural or functional abnormalities of the kidney, manifested by either: Pathological abnormalities or Markers of kidney damage (including abnormalities in the composition of the blood or urine or abnormalities in imaging tests). Performing Organization Address [facility] Phone Number [facility] CLIA: [id number], [address] Lactic Acid Whole Blood (06/08/2019 2:13 PM CDT) [facility] LACTIC ACID 1.31 0.50 - 2.20 mmol/L [facility] Specimen Blood - ARM, LEFT Performing Organization Address [facility] Phone Number [facility] CLIA: [id number], [address] [place] [place], [place] [address] [facility] Done. POCT GLUCOSE (AUTOMATED) (06/08/2019 1:28 PM CDT) Pathologist Sig nature POCT GLU 170 (H) 70 - 110 mg/dL [facility] Specimen Blood Performing Organization Address [facility] Phone Number [facility] CLIA: [id number], [address] POCT GLUCOSE (AUTOMATED) (06/08/2019 12:37 PM CDT) Pathologist Sig nature POCT GLU 162 (H) 70 - 110 mg/dL [facility] Specimen Blood Performing Organization Address [facility] Phone Number [facility] CLIA: [id number], [address] POCT GLUCOSE (AUTOMATED) (06/08/2019 12:01 PM CDT) Pathologist Sig nature POCT GLU 160 (H) 70 - 110 mg/dL [facility] Specimen Blood Performing Organization Address [facility] Phone Number [facility] CLIA: [id number], [address] POCT GLUCOSE (AUTOMATED) (06/08/2019 11:33 AM CDT) Pathologist Sig nature POCT GLU 134 (H) 70 - 110 mg/dL [facility] Specimen Blood Performing Organization Address [facility] Phone Number [facility] CLIA: [id number], [address] POCT GLUCOSE (AUTOMATED) (06/08/2019 10:28 AM CDT) Pathologist Sig nature POCT GLU 152 (H) 70 - 110 mg/dL [facility] Specimen Blood Performing Organization Address [facility] Phone Number [facility] CLIA: [id number], [address] POCT GLUCOSE (AUTOMATED) (06/08/2019 9:32 AM CDT) Pathologist Sig nature POCT GLU 140 (H) 70 - 110 mg/dL [facility] Specimen Blood Performing Organization Address [facility] Phone Number [facility] CLIA: [id number], [address] [place] [place], [place] [address] POCT GLUCOSE (AUTOMATED) (06/08/2019 8:32 AM CDT) Pathologist Sig nature POCT GLU 105 70 - 110 mg/dL [facility] Specimen Blood Performing Organization Address [facility] Phone Number [facility] CLIA: [id number], [address] POCT GLUCOSE (AUTOMATED) (06/08/2019 7:24 AM CDT) Pathologist Sig nature POCT GLU 154 (H) 70 - 110 mg/dL [facility] Specimen Blood Performing Organization Address [facility] Phone Number [facility] CLIA: [id number], [address] POCT GLUCOSE (AUTOMATED) (06/08/2019 6:11 AM CDT) [facility] Sig [facility] POCT GLU 151 (H) 70 - 110 mg/dL [facility] Specimen Blood Performing Organization Address [facility] Phone Number [facility] CLIA: [id number], [address] CBC WITH DIFFERENTIAL (06/08/2019 5:43 AM CDT) Pathologist Sig nature WBC 23.79 (H) 4.20 - 10.70 [facility] 10*3/L [facility] RBC 4.89 4.26 - 5.52 [facility] 10*6/L [facility] HGB 14.7 12.2 - 16.4 [facility] g/dL [facility] HCT 42.6 38.4 - 49.3 % [facility] MCV 87.1 81.7 - 95.6 fL [facility] MCH 30.1 26.1 - 32.7 pg [facility] MCHC 34.5 31.2 - 35.0 [facility] g/dL [facility] RDW-SD 40.2 38.5 - 51.6 fL [facility] RDW-CV 12.7 12.1 - 15.4 % [facility] PLT 321 150 - 328 [facility] 10*3/L HOSPITAL LABORATORY MPV 9.8 9.8 - 13.0 fL [facility] NRBC/100 WBC 0.0 0.0 - 10.0 /100 [facility] WBCs [facility] NRBC x10^3 <0.01 10*3/L [facility] GRAN MAT (NEUT) % 85.6 % [facility] IMM GRAN % 0.90 % [facility] LYMPH % 4.8 % [facility] MONO % 8.5 % [facility] EOS % 0.0 % [facility] BASO % 0.2 % [facility] GRAN MAT x10^3(ANC) 20.37 (H) 1.99 - 6.95 [facility] 10*3/uL [facility] IMM GRAN x10^3 0.22 (H) 0.00 - 0.06 [facility] 10*3/uL [facility] LYMPH x10^3 1.14 1.09 - 3.23 [facility] 10*3/uL [facility] MONO x10^3 2.02 (H) 0.36 - 1.02 [facility] 10*3/uL [facility] EOS x10^3 <0.03 (L) 0.06 - 0.53 [facility] 10*3/uL [facility] BASO x10^3 0.04 0.01 - 0.09 [place] [address]*3/uL [facility] Specimen Blood - VENOUS Performing Organization Address City/State/Zipcode Phone Number [facility] CLIA: [id number], [address] ACUTE CARE VENOUS BLOOD GAS (06/08/2019 5:43 AM CDT) [facility] PH 7.31 (L) 7.32 - 7.42 [facility] PCO2 PAULA 37 (L) 41 - 51 mmHg [facility] PO2 PAULA 30 25 - 40 mmHg [facility] HCO3 PAULA 18 (L) 24 - 28 mEq/L [facility] AC VBE(BEAKER) -7.5 mEq/L [facility] Specimen Blood - VENOUS Performing Organization Address [facility] Phone Number [facility] CLIA: [id number], [address] [place] [place], [place] [address] PHOSPHORUS (06/08/2019 5:43 AM CDT) Pathologist Sig nature PHOSPHORUS 1.8 (L) 2.5 - 5.0 mg/dL [facility] Specimen Blood - VENOUS Performing Organization Address [facility] Phone Number [facility] CLIA: [id number], [address] MAGNESIUM (06/08/2019 5:43 AM CDT) Pathologist Sig nature MAGNESIUM 2.2 1.7 - 2.4 mg/dL [facility] Specimen Blood - VENOUS Performing Organization Address [facility] Phone Number [facility] CLIA: [id number], [address] COMP. METABOLIC PANEL ([id number]) (06/08/2019 5:43 AM CDT) Pathologist Sig nature NA 140 135 - 145 [facility] mmol/L [facility] K 3.8 3.5 - 5.0 [facility] mmol/L [facility] CL 109 (H) 98 - 108 mmol/L [facility] CO2 TOTAL 18 (L) 23 - 31 mmol/L [facility] AGAP 13 2 - 16 [facility] BUN 16 7 - 23 mg/dL [facility] GLUCOSE 151 (H) 70 - 110 mg/dL [facility] CREATININE 0.75 0.60 - 1.25 [facility] mg/dL [facility] TOTAL BILI 0.5 0.1 - 1.1 mg/dL [facility] CALCIUM 9.3 8.6 - 10.6 [facility] mg/dL [facility] T PROTEIN 8.2 6.3 - 8.2 g/dL [facility] ALBUMIN 4.7 3.5 - 5.0 g/dL [facility] ALK PHOS 84 34 - 122 U/L [facility] ALTv 15 5 - 50 U/L [facility] AST(SGOT) 25 13 - 40 U/L [facility] eGFR Calculation 124.0 mL/min/1.73m2 [facility] [place]) eGFR Calculation 150.3 mL/min/1.73m2 [facility] () [facility] Specimen Blood - VENOUS Narrative Performed At [facility] of Glomerular Filtration Rate (GFR) [facility] and Staging of Kidney Disease* + + +- + | GFR (mL/min/1.73 m2) | With Kidney Damage | Without Kidney Damage + + +- + | >90 | Stage one | Normal + + +- + | 60-89 | Stage two | Decreased GFR + + +- + | 30-59 | Stage three | Stage three + + +- + | 15-29 | Stage four | Stage four + + +- + | <15 (or dialysis) | Stage five | Stage five + + +- + *Each stage assumes the associated GFR level has been in effect for at least three months. Stages 1 to 5, with or without kidney disease, indicate chronic kidney disease. Notes: Determination of stages one and two (with eGFR >59mL/min/1.73 m2) requires estimation of kidney damage for at least three months as defined by structural or functional abnormalities of the kidney, manifested by either: Pathological abnormalities or Markers of kidney damage (including abnormalities in the composition of the blood or urine or abnormalities in imaging tests). Performing Organization Address [facility] Phone Number [facility] CLIA: [id number], [address] POCT GLUCOSE (AUTOMATED) (06/08/2019 5:39 AM CDT) Pathologist Sig [employer] POCT GLU 162 (H) 70 - 110 mg/dL [facility] Specimen Blood Performing Organization Address [facility] Phone Number [facility] CLIA: [id number], [address] [place] [place], [place] [address] POCT GLUCOSE (AUTOMATED) (06/08/2019 5:11 AM CDT) Pathologist [facility] POCT GLU 149 (H) 70 - 110 mg/dL [facility] Specimen Blood Performing Organization Address [facility] Phone Number [facility] CLIA: [id number], [address] POCT GLUCOSE (AUTOMATED) (06/08/2019 4:04 AM CDT) Pathologist Sig [employer] POCT GLU 160 (H) 70 - 110 mg/dL [facility] Specimen Blood Performing Organization Address [facility] Phone Number [facility] CLIA: [id number], [address] POCT GLUCOSE (AUTOMATED) (06/08/2019 3:24 AM CDT) Pathologist Sig [employer] POCT GLU 150 (H) 70 - 110 mg/dL [facility] Specimen Blood Performing Organization Address [facility] Phone Number [facility] CLIA: [id number], [address] POCT GLUCOSE (AUTOMATED) (06/08/2019 2:02 AM CDT) Pathologist Sig [employer] POCT GLU 165 (H) 70 - 110 mg/dL [facility] Specimen Blood Performing Organization Address [facility] Phone Number [facility] CLIA: [id number], [address] BASIC METABOLIC PANEL (NA, K, CL, CO2, GLUCOSE, BUN, CREATININE, CA) (06/08/2019 12:59 AM CDT) Pathologist Sig nature NA 139 135 - 145 [facility] mmol/L [facility] K 4.4 3.5 - 5.0 [facility] mmol/L [facility] CL 111 (H) 98 - 108 mmol/L [facility] CO2 TOTAL 11 (L) 23 - 31 mmol/L [facility] AGAP 17 (H) 2 - 16 [facility] BUN 17 7 - 23 mg/dL [facility] GLUCOSE 249 (H) 70 - 110 mg/dL [facility] CREATININE 0.87 0.60 - 1.25 [facility] mg/dL [facility] CALCIUM 9.2 8.6 - 10.6 [facility] mg/dL [facility] eGFR Calculation 104.5 mL/min/1.73m2 [facility] ([facility] LABORATORY [place]) eGFR Calculation 126.6 mL/min/1.73m2 [facility] () [facility] Specimen Blood - VENOUS Narrative Performed At [facility] of Glomerular Filtration Rate (GFR) [facility] and Staging of Kidney Disease* + + +- + | GFR (mL/min/1.73 m2) | With Kidney Damage | Without Kidney Damage + + +- + | >90 | Stage one | Normal + + +- + | 60-89 | Stage two | Decreased GFR + + +- + | 30-59 | Stage three | Stage three + + +- + | 15-29 | Stage four | Stage four + + +- + | <15 (or dialysis) | Stage five | Stage five + + +- + *Each stage assumes the associated GFR level has been in effect for at least three months. Stages 1 to 5, with or without kidney disease, indicate chronic kidney disease. Notes: Determination of stages one and two (with eGFR >59mL/min/1.73 m2) requires estimation of kidney damage for at least three months as defined by structural or functional abnormalities of the kidney, manifested by either: Pathological abnormalities or Markers of kidney damage (including abnormalities in the composition of the blood or urine or abnormalities in imaging tests). Performing Organization Address [id number], [address] [address] [address] POCT GLUCOSE (AUTOMATED) (06/08/2019 12:57 AM CDT) [facility] nature POCT GLU 181 (H) 70 - 110 mg/dL [facility] Specimen Blood Performing Organization Address [facility] Phone [facility] [id number], [address] [address] [address] POCT GLUCOSE (AUTOMATED) (06/08/2019 12:15 AM CDT) [facility] nature POCT GLU 171 (H) 70 - 110 mg/dL [facility] Specimen Blood Performing Organization Address [facility] Phone [facility]: [id number], [address] ACUTE CARE VENOUS BLOOD GAS (06/07/2019 11:27 PM CDT) Pathologist Sig nature PH 7.30 (L) 7.32 - 7.42 [facility] PCO2 PAULA 24 (L) 41 - 51 mmHg [facility] PO2 PAULA 123 (HH) 25 - 40 mmHg [facility] HCO3 PAULA 12 (L) 24 - 28 mEq/L [facility] AC VBE(BEAKER) -12.6 mEq/L [facility] Specimen Blood - VENOUS Performing Organization Address [facility] Phone Number [facility] CLIA: [id number], [address] POCT GLUCOSE (AUTOMATED) (06/07/2019 11:24 PM CDT) Pathologist Sig DataPad POCT GLU 174 (H) 70 - 110 mg/dL [facility] Specimen Blood Performing Organization Address [facility] Phone Number [facility] CLIA: [id number], [address] POCT GLUCOSE (AUTOMATED) (06/07/2019 9:49 PM CDT) Pathologist Sig DataPad POCT GLU 163 (H) 70 - 110 mg/dL [facility] Specimen Blood Performing Organization Address [facility] Phone Number [facility] CLIA: [id number], [address] POCT GLUCOSE (AUTOMATED) (06/07/2019 9:09 PM CDT) Pathologist Sig DataPad POCT GLU 161 (H) 70 - 110 mg/dL [facility] Specimen Blood Performing Organization Address [facility] Phone Number [facility] CLIA: [id number], [address] POCT GLUCOSE (AUTOMATED) (06/07/2019 8:58 PM CDT) Pathologist Sig nature POCT GLU 160 (H) 70 - 110 mg/dL [facility] Specimen Blood Performing Organization Address [facility] Phone Number [facility] CLIA: [id number], [address] [place] [place], [place] [address] POCT GLUCOSE (AUTOMATED) (06/07/2019 7:54 PM CDT) Pathologist Sig nature POCT GLU 173 (H) 70 - 110 mg/dL [facility] Specimen Blood Performing Organization Address [facility] Phone Number [facility] CLIA: [id number], [address] [place], [place] [address] POCT GLUCOSE (AUTOMATED) (06/07/2019 7:02 PM CDT) Pathologist Sig nature POCT GLU 251 (H) 70 - 110 mg/dL [facility] Specimen Blood Performing Organization Address [facility] Phone Number [facility] CLIA: [id number], [address] ACUTE CARE VENOUS BLOOD GAS (06/07/2019 6:49 PM CDT) PH 7.21 (L) 7.32 - 7.42 [facility] PCO2 PAULA 15 (L) 41 - 51 mmHg [facility] PO2 PAULA Comment: Unable [facility] to read [facility] HCO3 PAULA 6 (L) 24 - 28 mEq/L [facility] AC VBE(BEAKER) -19.2 mEq/L [facility] Specimen Blood - ARM, LEFT Performing Organization Address [facility] Phone Number [facility] CLIA: [id number], [address] [place], [place] [address] CBC WITH DIFFERENTIAL (06/07/2019 6:48 PM CDT) Pathologist Sig nature WBC 32.28 (H) 4.20 - 10.70 [facility] 10*3/L H[facility] RBC 5.09 4.26 - 5.52 [facility] 10*6/L [facility] HGB 15.0 12.2 - 16.4 g/dL [facility] HCT 46.2 38.4 - 49.3 % [facility] MCV 90.8 81.7 - 95.6 fL [facility] MCH 29.5 26.1 - 32.7 pg [facility] MCHC 32.5 31.2 - 35.0 g/dL [facility] RDW-SD 41.3 38.5 - 51.6 fL [facility] RDW-CV 12.3 12.1 - 15.4 % [facility] PLT 347 (H) 150 - 328 10*3/L [facility] MPV 10.2 9.8 - 13.0 fL [facility] NRBC/100 WBC 0.0 0.0 - 10.0 /100 [facility] WBCs [facility] NRBC x10^3 <0.01 10*3/L [facility] SEG % 73 33 - 76 % [facility] BAND % 8 (H) 0 - 1 % [facility] LYMPH % 15 14 - 54 % [facility] MONO % 4 0 - 4 % [facility] ANC 26.14 (H) 1.99 - 6.95 [facility] 10*3/uL [facility] PLT ESTIMATE Normal Normal [facility] Specimen Blood - ARM, LEFT Performing Organization Address City/[facility]/Zipcode Phone Number [facility] CLIA: [id number], [address] [place], [place] [address] DIFF CONSULT INTERPRETATION (06/07/2019 6:48 PM CDT) Specimen Blood - ARM, LEFT Narrative Performed At Red blood cells are normocytic and normochromic. There is [facility] neutrophilia. PMNs are increased without toxic roman es or left-shift. No abnormal lymphoid cells or blasts are seen. Platelets are normal. The granulocytosis appears to be reactive. Performing Organization Address City/State/Zipcode Phone Number [facility] CLIA: [id number], [address] [place] [place], [place] [address] [facility] BASIC METABOLIC PANEL (NA, K, CL, CO2, GLUCOSE, BUN, CREATININE, CA) (06/07/2019 6:48 PM CDT) Pathologist Sig nature NA 140 135 - 145 [facility] mmol/L [facility] K 5.1 (H) 3.5 - 5.0 [facility] mmol/L [facility] CL 112 (H) 98 - 108 mmol/L [facility] CO2 TOTAL 7 (L) 23 - 31 mmol/L [facility] AGAP 21 (H) 2 - 16 [facility] BUN 20 7 - 23 mg/dL [facility] GLUCOSE 244 (H) 70 - 110 mg/dL [facility] CREATININE 1.22 0.60 - 1.25 [facility] mg/dL [facility] CALCIUM 9.1 8.6 - 10.6 [facility] mg/dL [facility] eGFR Calculation 70.7 mL/min/1.73m2 [facility] (Non-[facility] LABORATORY [place]) eGFR Calculation 85.7 mL/min/1.73m2 [facility] () [facility] Specimen Blood - ARM, LEFT Narrative Performed At Association of Glomerular Filtration Rate (GFR) [facility] and Staging of Kidney Disease* + + +- + | GFR (mL/min/1.73 m2) | With Kidney Damage | Without Kidney Damage + + +- + | >90 | Stage one | Normal + + +- + | 60-89 | Stage two | Decreased GFR + + +- + | 30-59 | Stage three | Stage three + + +- + | 15-29 | Stage four | Stage four + + +- + | <15 (or dialysis) | Stage five | Stage five + + +- + *Each stage assumes the associated GFR level has been in effect for at least three months. Stages 1 to 5, with or without kidney disease, indicate chronic kidney disease. Notes: Determination of stages one and two (with eGFR >59mL/min/1.73 m2) requires estimation of kidney damage for at least three months as defined by structural or functional abnormalities of the kidney, manifested by either: Pathological abnormalities or Markers of kidney damage (including abnormalities in the composition of the blood or urine or abnormalities in imaging tests). Performing Organization Address City/State/Zipcode Phone Number [facility] CLIA: [id number], [address] [place], [place] [address] POCT GLUCOSE (AUTOMATED) (06/07/2019 6:01 PM CDT) Pathologist Sig nature POCT GLU 287 (H) 70 - 110 mg/dL [facility] Specimen Blood Performing Organization Address [facility] Phone Number [facility] CLIA: [id number], [address] [place], [place] [address] POCT GLUCOSE (AUTOMATED) (06/07/2019 5:04 PM CDT) Pathologist Sig nature POCT GLU 325 (H) 70 - 110 mg/dL [facility] Specimen Blood Performing Organization Address [facility] Phone Number [facility] CLIA: [id number], [address] POCT GLUCOSE (AUTOMATED) (06/07/2019 4:04 PM CDT) Pathologist Sig nature POCT GLU 379 (H) 70 - 110 mg/dL [facility] Specimen Blood Performing Organization Address [facility] Phone Number [facility] CLIA: [id number], [address] Osmolality Serum (06/07/2019 3:30 PM CDT) Pathologist Sig nature OSMOLALITY 316 (H) 278 - 305 mOsm/kg [facility] Specimen Blood - ARM, LEFT Performing Organization Address [facility] Phone Number [facility] CLIA: [id number], [address] [place], [place] [address] [facility] PROCALCITONIN (06/07/2019 3:30 PM CDT) Pathologist Sig nature Procalcitonin 0.99 (H) <0.07 ng/mL [facility] Specimen Blood - ARM, LEFT Narrative Performed At INTERPRETATION OF PROCALCITONIN RESULTS IN ADULTS >= 1 8 [facility] YEARS OF AGE Initiation and discontinuation of antibiotics on patie nts with suspected or confirmed Lower Respiratory Tract Infection in Adults >= 18 years of age. + + + +----- ------ + |Procalcitonin |Interpretation |Antibiotic |Considerations |ng/mL | |recommend ation | + + + +----- ------ + | <0.1 | Bacterial | Strongly | | | infection very | discouraged | Overruling: | | unlikely | | Clinically unstable + + + + H igh risk for adverse | <0.25 | Bacterial | Discouraged | outcome | | infection | | SEE IMPORTANT NOTE | | unlikely | | + + + +----- ------ + | >=0.25 | Bacterial | Encouraged | | | infection | | | | likely | | Consider treatment failure + + + + if l evels does not decrease | >0.5 | Bacterial | Strongly | appropriately | | infection very | encouraged | | | likely | | + + + +----- ------ + Discontinuation of antibiotics in high-acuity patients with suspected or confirmed sepsis in Adults >= 18 years of age. + + + +----- ------ + |Procalcitonin |Interpretation |Antibiotic |Considerations |ng/mL | |recommend ation | + + + +----- ------ + | <0.25 | Bacterial | Strongly | | | infection very | discouraged | Overruling: | | unlikely | | Clinically unstable + + + + H igh risk for adverse | <0.5 or drop | Bacterial | Discouraged | outcome | >80% from | infection | | SEE IMPORTANT NOTE | highest PCT | unlikely | | | level | | | + + + +----- ------ + | >=0.5 | Bacterial | Encouraged | | | infection | | | | likely | | Consider treatment failure + + + + if l evels does not decrease | >1.0 | Bacterial | Strongly | appropriately | | infection very | encouraged | | | likely | | + + + +----- ------ + Percentage of drop of Procalcitonin calculation for Discontinuation of antibiotics in high-acuity patients with suspected or confirmed sepsis in Adults >= 18 years of age. Procalcitonin highest{}-Procalcitonin current{} Delta Procalcitonin = x100% Procalcitonin current {} IMPORTANT NOTE: Procalcitonin may be elevated without bacterial infection by physiologic stress related to t rauma, colby, chronic dialysis, metastatic cancer, surgery in the past seven days, malaria, some fungal infections, and some forms of vasculitis. The interpretation algorithm may not apply to patients with immunosuppression (equivalent o f >10 mg of prednisone daily), HIV with CD4 cell count < 350 cells/mm3, active malignancy on systemic chemotherapy, solid organ transplant or [facility], or hospital acquired pneumonia. Additionally, some cli nical trials of procalcitonin have excluded patients with sh ock requiring vasopressor use, acute respiratory failure requiring mechanical ventilation, or those with known lung abscess/empyema. For further information please refer to: [email or web address] Performing Organization Address City/State/Zipcode Phone Number [facility] CLIA: [id number], [address] [place] [place], [place] [address] [facility] COMP. METABOLIC PANEL ([id number]) (06/07/2019 3:30 PM CDT) NA 139 135 - 145 [facility] mmol/L [facility] K 4.8 3.5 - 5.0 [facility] mmol/L [facility] CL 113 (H) 98 - 108 [facility] mmol/L [facility] CO2 TOTAL <5 (L) 23 - 31 [facility] mmol/L [facility] AGA Comment: Unable to [facility] calculate because, HOSPITAL either,SODIUM LABORATORY SERUM, CHLORIDE SERUM, CO2 TOTAL or all are less than the sensitivity of the analyzer. BUN 21 7 - 23 mg/dL [facility] GLUCOSE 391 (H) 70 - 110 [facility] mg/dL [facility] CREATININE 1.28 (H) 0.60 - 1.25 [facility] mg/dL [facility] TOTAL BILI 0.3 0.1 - 1.1 [facility] mg/dL [facility] CALCIUM 7.4 (L) 8.6 - 10.6 [facility] mg/dL [facility] T PROTEIN 6.7 6.3 - 8.2 [facility] g/dL [facility] ALBUMIN 3.8 3.5 - 5.0 [facility] g/dL [facility] ALK PHOS 75 34 - 122 U/L [facility] ALTv 13 5 - 50 U/L [facility] AST(SGOT) 16 13 - 40 U/L [facility] eGFR Calculation 66.9 mL/min/1.73m [facility] (Non- 2 HOSPITAL [place]) LABORATORY eGFR Calculation 81.1 mL/min/1.73m [facility] () [address] [place] [address] LABORATORY Specimen Blood - ARM, LEFT Narrative Performed At [facility] Glomerular Filtration Rate (GFR) [facility] and Staging of Kidney Disease* + + +- + | GFR (mL/min/1.73 m2) | With Kidney Damage | Without Kidney Damage + + +- + | >90 | Stage one | Normal + + +- + | 60-89 | Stage two | Decreased GFR + + +- + | 30-59 | Stage three | Stage three + + +- + | 15-29 | Stage four | Stage four + + +- + | <15 (or dialysis) | Stage five | Stage five + + +- + *Each stage assumes the associated GFR level has been in effect for at least three months. Stages 1 to 5, with or without kidney disease, indicate chronic kidney disease. Notes: Determination of stages one and two (with eGFR >59mL/min/1.73 m2) requires estimation of kidney damage for at least three months as defined by structural or functional abnormalities of the kidney, manifested by either: Pathological abnormalities or Markers of kidney damage (including abnormalities in the composition of the blood or urine or abnormalities in imaging tests). Performing Organization Address City/State/Zipcode Phone Number [facility] CLIA: [id number], [address] [place], [place] [address] POCT GLUCOSE (AUTOMATED) (06/07/2019 2:26 PM CDT) Pathologist Sig nature POCT GLU 496 (HH) 70 - 110 mg/dL [facility] Specimen Blood Performing Organization Address [facility] Phone Number [facility] CLIA: [id number], [address] [place], [place] [address] AC PANEL 21 + LACTIC ACID (06/07/2019 2:04 PM CDT) PH 6.94 (LL) 7.32 - 7.42 [facility] PCO2 PAULA 15 (L) 41 - 51 mmHg [facility] PO2 PAULA Comment: Unable [facility] to [facility] LABORATORY HCO3 PAULA 3 (L) 24 - 28 mEq/L [facility] AC VBE(BEAKER) -27.9 mEq/L [facility] THB PAULA 15.7 13.5 - 18.0 [facility] g/dL HOSPITAL LABORATORY %O2HB PAULA 87.0 (H) 52.0 - 63.0 % [facility] %COHB PAULA 1.0 0.0 - 1.5 % [facility] %METHB PAULA 0.8 0.4 - 1.5 % [facility] VOL%O2 PAULA Comment: Unable [facility] LABORATORY NA 136 135 - 145 [facility] mmol/L [facility] K+ 5.8 (H) 3.5 - 5.0 [facility] mmol/L [facility] AC CA IONZ 4.90 4.50 - 5.30 [facility] mg/dL HOSPITAL LAB[facility]ORY GLUCOSE 510 (HH) 70 - 110 mg/dL [facility] LACTIC ACID 2.25 (H) 0.50 - 2.20 [facility] mmol/L [facility] Specimen Blood - VENOUS Performing Organization Address [facility] Phone Number [facility] CLIA: [id number], [address] [place], [place] [address] CBC WITH DIFFERENTIAL (06/07/2019 2:03 PM CDT) Pathologist Sig nature WBC 43.08 (H) 4.20 - 10.70 [facility] 10*3/L HOSPITAL LABORATORY RBC 5.21 4.26 - 5.52 [facility] 10*6/L HOSPITAL LAB[facility]ORY HGB 15.6 12.2 - 16.4 [facility] g/dL [facility] HCT 50.6 (H) 38.4 - 49.3 % [facility] MCV 97.1 (H) 81.7 - 95.6 fL [facility] MCH 29.9 26.1 - 32.7 pg [facility] MCHC 30.8 (L) 31.2 - 35.0 [facility] g/dL [facility] RDW-SD 44.6 38.5 - 51.6 fL [facility] RDW-CV 12.3 12.1 - 15.4 % [facility] PLT 295 150 - 328 [facility] 10*3/L [facility] MPV 10.7 9.8 - 13.0 fL [facility] NRBC/100 WBC 0.0 0.0 - 10.0 /100 [facility] WBCs [facility] NRBC x10^3 <0.01 10*3/L [facility] GRAN MAT (NEUT) % 78.8 % [facility] IMM GRAN % 4.10 % [facility] LYMPH % 8.9 % [facility] MONO % 7.8 % [facility] EOS % 0.0 % [facility] BASO % 0.4 % [facility] GRAN MAT x10^3(ANC) 33.93 (H) 1.99 - 6.95 [facility] 10*3/uL HOSPITAL LABORATORY IMM GRAN x10^3 1.77 (H) 0.00 - 0.06 [facility] 10*3/uL HOSPITAL LAB[facility]ORY LYMPH x10^3 3.84 (H) 1.09 - 3.23 [facility] 10*3/uL HOSPITAL LAB[facility]ORY MONO x10^3 3.34 (H) 0.36 - 1.02 [facility] 10*3/uL HOSPITAL LABORATORY EOS x10^3 <0.03 (L) 0.06 - 0.53 [facility] 10*3/uL [facility] BASO x10^3 0.19 (H) 0.01 - 0.09 [facility] 10*3/uL [facility] Specimen Blood - ARM, RIGHT Performing Organization Address [facility] Phone Number [facility] CLIA: [id number], [address] [place], [place] [address] POCT GLUCOSE (AUTOMATED) (06/07/2019 12:34 PM CDT) Pathologist Sig nature POCT GLU >600 (HH) 70 - 110 mg/dL [facility] Specimen Blood Performing Organization Address [facility] Phone Number [facility] CLIA: [id number], [address] [address] [address] URINE CULTURE (06/07/2019 12:20 PM CDT) URINE CULTURE 10,000-100,000 CFU/mL [facility] Streptococcus SERVICES agalactiae (Group B) Specimen Urine - URINE, CATHETERIZED Narrative Performed At Penicillin and ampicillin are drugs of choice for [facility] of beta-hemolytic streptococcal infections. In accorda nce with CLSI M100 guidelines, susceptibility testing of penicillin and other beta-lactams need not be performe d due to the extremely rare nature of non-susceptible isolat es. Performing Organization Address [facility] Phone Number [facility] CLIA: [id number], [address] [place], [place] [address] [facility] Urinalysis (06/07/2019 12:20 PM CDT) Pathologist Sig nature APPEARANCE Hazy (A) Clear [facility] COLOR Yellow Yellow [facility] PH 5.0 4.8 - 8.0 [facility] SP GRAVITY 1.014 1.003 - 1.030 [facility] GLU U QUAL 500 mg/dL (A) Normal [facility] BLOOD 2+ (A) Negative [facility] KETONES 80 mg/dL (A) Negative [facility] PROTEIN 30 mg/dL (A) Negative [facility] UROBILIN Normal Normal [facility] BILIRUBIN Negative Negative [facility] NITRITE Negative Negative [facility] LEUK AIMEE Negative Negative [facility] RBC/HPF 2 0 - 3 HPF [facility] WBC/HPF 14 (H) 0 - 5 HPF [facility] BACTERIA Few (A) Negative [facility] MUCOUS Slight (A) Negative LPF [facility] SQ EPITH 1 HPF [facility] HYAL CAST 8 (H) <=2 LPF [facility] Specimen Urine - URINE, CLEAN CATCH Performing Organization Address City/[facility]/Zipcode Phone Number [facility] CLIA: [id number], [address] [place], [place] [address] XR CHEST 1 VW (06/07/2019 12:01 PM CDT) Specimen Narrative Performed At HISTORY: DKA. PACS/VR/DOSE TECHNIQUE: 2 Portable AP view of the chest were obtain ed. Comparison made with 10/17/2018 study. FINDINGS: No acute pneumonia. No pneumot horax or pleural effusion or pulmonary congestion detected. Cardiac s ize is within normal limits. CONCLUSIONS: No signs of acute cardiopulmonary disease . Procedure Note [facility], Radiant Results Inft User - 2019 12:09 PM CDT HISTORY: DKA. TECHNIQUE: 2 Portable AP view of the jenn st were obtained. Comparison made with 10/17/2018 study. FINDINGS: No acute pneumonia. No pneumot horax or pleural effusion or pulmonary congestion detected. Cardiac s ize is within normal limits. CONCLUSIONS: No signs of acute cardiopul monary disease. Performing Organization Address [facility]State[facility] Phone Number PACS/VR/DOSE Critical Care (06/07/2019 12:00 PM CDT) Narrative Performed At Radha Singh EMNP 06/07/2019 12 :06 PM Critical Care Performed by: Radha Singh EMNP Authorized by: Radha Singh EMNP Critical care provider statement: Critical care time (minutes): 40 Critical care time was exclusive of: Separately b illable procedures and treating other patients and teaching roque e Critical care was necessary to treat or prevent imminent or life-threatening deterioration of the following condit ions: Circulatory failure, dehydration and metabolic crisi s Critical care was time spent personal ly by me on the following activities: Development of treatment p minerva with patient or surrogate, discussions with consultants, evaluation of patient's response to treatment, examination of patient, obtai racheal history from patient or surrogate, ordering and performing treatments and inte rventions, ordering and review of laboratory studies, orderi ng and review of radiographic studies, pulse oximetry and re-evaluatio n of patient's condition I assumed direction of critical care for this patient from another provider in my specialty: no LIPID PANEL ([id number])(TOTAL CHOLESTEROL, TRIGLYCERIDES, HDL) (06/07/2019 11:55 AM CDT) Pathologist Sig nature CHOL 243 (H) 120 - 200 mg/dL [facility] HDL 92 >40 mg/dL [facility] HDLC RATIO 2.6 <=5.0 [facility] TRIG 309 (H) 30 - 170 mg/dL [facility] LDL CHOL 89 <=160 mg/dL [facility] VLDL 62 (H) 5 - 60 mg/dL [facility] Specimen Blood - HAND, RIGHT Performing Organization Address [facility] Phone Number [facility] CLIA: [id number], [address] URIC ACID (06/07/2019 11:55 AM CDT) Pathologist Sig nature URIC ACID 9.6 (H) 3.6 - 8.0 mg/dL [facility] Specimen Blood - HAND, RIGHT Performing Organization Address [facility] Phone Number [facility] CLIA: [id number], [address] HEPATIC FUNCTION PANEL ([id number]) (ALB,T.PRO,BILI T,BU/BC,ALT,AST,ALK PHOS) (06/07/2019 11:55 AM CDT) Pathologist Sig nature TOTAL BILI 0.4 0.1 - 1.1 mg/dL [facility] BILI UNCON 0.4 0.1 - 1.1 mg/dL [facility] BILI CONJ 0.0 0.0 - 0.3 mg/dL [facility] T PROTEIN 8.7 (H) 6.3 - 8.2 g/dL [facility] ALBUMIN 5.3 (H) 3.5 - 5.0 g/dL [facility] ALK PHOS 113 34 - 122 U/L [facility] ALTv 19 5 - 50 U/L [facility] AST(SGOT) 28 13 - 40 U/L [facility] Specimen Blood - HAND, RIGHT Performing Organization Address [facility] Phone Number [facility] CLIA: [id number], [address] LIPASE (06/07/2019 11:55 AM CDT) Pathologist Sig nature LIPASE 77 0 - 220 U/L [facility] Specimen Blood - HAND, RIGHT Performing Organization Address [facility] Phone Number [facility] CLIA: [id number], [address] Phosphorus Serum (06/07/2019 11:55 AM CDT) Pathologist Sig nature PHOSPHORUS 9.4 (H) 2.5 - 5.0 mg/dL [facility] Specimen Blood - HAND, RIGHT Performing Organization Address [facility] Phone Number [facility] CLIA: [id number], [address] Magnesium Serum (06/07/2019 11:55 AM CDT) Pathologist Sig nature MAGNESIUM 2.7 (H) 1.7 - 2.4 mg/dL [facility] Specimen Blood - HAND, RIGHT Performing Organization Address [facility] Phone Number [facility] CLIA: [id number], [address] Basic Metabolic Panel (Na, K, Cl, CO2, Glucose, BUN, Creatinine, Ca) (06/07/2019 11:55 AM CDT) NA 134 (L) 135 - 145 [facility] mmol/L [facility] K 7.6 (HH) 3.5 - 5.0 [facility] mmol/L [facility] CL 98 98 - 108 [facility] mmol/L [facility] CO2 TOTAL <5 (L) 23 - 31 [facility] mmol/L [facility] AGAP Comment: Unable to [facility] calculate because, HOSPITAL either,SODIUM LABORATORY SERUM, CHLORIDE SERUM, CO2 TOTAL or all are less than the sensitivity of the analyzer. BUN 26 (H) 7 - 23 mg/dL [facility] GLUCOSE 793 (HH) 70 - 110 [facility] mg/dL [facility] CREATININE 2.50 (H) 0.60 - 1.25 [facility] mg/dL [facility] CALCIUM 9.1 8.6 - 10.6 [facility] mg/dL [facility] eGFR Calculation 30.9 mL/min/1.73m [facility] (Non- [address] [place] [address] [place]) LABORATORY eGFR Calculation 37.5 mL/min/1.73m [facility] () [address] [place] [address] LABORATORY Specimen Blood - HAND, RIGHT Narrative Performed At [facility] Glomerular Filtration Rate (GFR) [facility] and Staging of Kidney Disease* + + +- + | GFR (mL/min/1.73 m2) | With Kidney Damage | Without Kidney Damage + + +- + | >90 | Stage one | Normal + + +- + | 60-89 | Stage two | Decreased GFR + + +- + | 30-59 | Stage three | Stage three + + +- + | 15-29 | Stage four | Stage four + + +- + | <15 (or dialysis) | Stage five | Stage five + + +- + *Each stage assumes the associated GFR level has been in effect for at least three months. Stages 1 to 5, with or without kidney disease, indicate chronic kidney disease. Notes: Determination of stages one and two (with eGFR >59mL/min/1.73 m2) requires estimation of kidney damage for at least three months as defined by structural or functional abnormalities of the kidney, manifested by either: Pathological abnormalities or Markers of kidney damage (including abnormalities in the composition of the blood or urine or abnormalities in imaging tests). Performing Organization Address City/State/Zipcode Phone Number [facility] CLIA: [id number], [address] [place] [place], [place] [address] [facility] (06/07/2019 11:54 AM CDT) Pathologist Sig nature BOH >9.0 mmol/L [facility] Specimen Blood - VENOUS Narrative Performed At Normal Ranges: [facility] Nonfasting Less th an 0.1 mmol/L Overnight Fast Less than 0.4 mmol/L Fasting (1-2 weeks) 6-8 mmol/L Test developed and characteristics determined by [facility]. Performing Organization Address City/[facility] Phone Number [facility] CLIA: [id number], [address] [place] [address] [address] [facility] Osmolality Serum (06/07/2019 11:54 AM CDT) Pathologist Sig nature OSMOLALITY 337 (HH) 278 - 305 mOsm/kg [facility] S Specimen Blood - VENOUS Performing Organization Address [facility] Phone Number [facility] CLIA: [id number], [address] [place] [address] [address] [facility] Lactic Acid Whole Blood (06/07/2019 11:49 AM CDT) Pathologist Sig nature LACTIC ACID 4.92 (H) 0.30 - 2.60 mmol/L [facility] Specimen Blood - HAND, RIGHT Performing Organization Address [facility] Phone Number [facility] CLIA: [id number], [address] [place] [address] Acute Care Venous Blood Gas (06/07/2019 11:49 AM CDT) Pathologist Sig nature PH 6.77 (LL) 7.32 - 7.42 [facility] PCO2 [place] 18 (L) 41 - 51 mmHg [facility] PO2 [place] 58 (HH) 25 - 40 mmHg [facility] HCO3 [place] 3 (L) 24 - 28 mEq/L [facility] AC VBE(BEAKER) -32.3 mEq/L [facility] Specimen Blood - HAND, RIGHT Performing Organization Address [facility] Phone Number [facility] CLIA: [id number], [address] POCT GLUCOSE (AUTOMATED) (06/07/2019 11:22 AM CDT) Pathologist Sig nature POCT GLU >600 (HH)Comment: 70 - 110 mg/dL [facility] Notified Provider [facility] Specimen Blood Performing Organization Address City/State/Zipcode Phone Number [facility] CLIA: [id number], [address] [place] [address] Basic Metabolic Panel (Na, K, Cl, CO2, Glucose, BUN, Creatinine, Ca) (06/07/2019 11:02 AM CDT) NA 134 (L) 135 - 145 [facility] mmol/L [facility] K 5.7 (H) 3.5 - 5.0 [facility] mmol/L [facility] CL 105 98 - 108 [facility] mmol/L [facility] CO2 TOTAL <5 (L) 23 - 31 [facility] mmol/L [facility] AGAP Comment: Unable to [facility] calculate because, HOSPITAL either,SODIUM LABORATORY SERUM, CHLORIDE SERUM, CO2 TOTAL or all are less than the sensitivity of the analyzer. BUN 22 7 - 23 mg/dL [facility] GLUCOSE 767 (HH) 70 - 110 [facility] mg/dL [facility] CREATININE 1.75 (H) 0.60 - 1.25 [facility] mg/dL [facility] CALCIUM 6.4 (L) 8.6 - 10.6 [facility] mg/dL [facility] eGFR Calculation 46.6 mL/min/1.73m [facility] (Non- 2 [facility] [place]) LABORATORY eGFR Calculation 56.5 mL/min/1.73m [facility] () 2 [facility] Specimen Blood - VENOUS Narrative Performed At [facility] Rate (GFR) [facility] and Staging of Kidney Disease* + + +- + | GFR (mL/min/1.73 m2) | With Kidney Damage | Without Kidney Damage + + +- + | >90 | Stage one | Normal + + +- + | 60-89 | Stage two | Decreased GFR + + +- + | 30-59 | Stage three | Stage three + + +- + | 15-29 | Stage four | Stage four + + +- + | <15 (or dialysis) | Stage five | Stage five + + +- + *Each stage assumes the associated GFR level has been in effect for at least three months. Stages 1 to 5, with or without kidney disease, indicate chronic kidney disease. Notes: Determination of stages one and two (with eGFR >59mL/min/1.73 m2) requires estimation of kidney damage for at least three months as defined by structural or functional abnormalities of the kidney, manifested by either: Pathological abnormalities or Markers of kidney damage (including abnormalities in the composition of the blood or urine or abnormalities in imaging tests). Performing Organization Address [facility] Phone Number [facility] CLIA: [id number], [address] [address] [address] [facility] CORONAVIRUS COVID-19 TESTING (06/07/2019 10:35 AM CDT) Pathologist Sig nature SARS-CoV-2 Not Detected Not Detected [facility] Specimen Swab - NASOPHARYNGEAL SWAB Narrative Performed At [facility] COVID-19 Assay is an isothermal nucleic [facility] acid amplification test intended for the qualitative detection of nucleic acid from SARS-CoV-2 viral RNA in nasopharyngeal (GAS MAIN [employer]TER) specimens. It is used under Emergency Use Authorization (EUA) by FDA. The limit of detection (LOD) of the assay is 125 Genome Equivalents/mL. A positive result is indicative of the presence of SARS-CoV-2 RNA. Clinical correlation with patient history and other diagnostic information is necessary to determine patient infection status. A negative (Not Detected) result does not preclude SARS-CoV-2 infection. Clinical correlation with patient history and other diagnostic information should be used in patient management decisions. Invalid: Please collect a new specimen for repeat patient testing if clinically indicated. Performing Organization Address [facility] Phone Number [facility] CLIA: [id number], [address] [place] [place], [place] [address] [facility] CBC WITH DIFFERENTIAL (06/07/2019 10:35 AM CDT) Pathologist Sig nature WBC 45.36 (H) 4.20 - 10.70 [facility] 10*3/L [facility] RBC 5.20 4.26 - 5.52 [facility] 10*6/L [facility] HGB 15.4 12.2 - 16.4 [facility] g/dL [facility] HCT 52.9 (H) 38.4 - 49.3 % [facility] MCV 101.7 (H) 81.7 - 95.6 fL [facility] MCH 29.6 26.1 - 32.7 pg [facility] MCHC 29.1 (L) 31.2 - 35.0 [facility] g/dL [facility] RDW-SD 48.2 38.5 - 51.6 fL [facility] RDW-CV 12.6 12.1 - 15.4 % [facility] PLT 499 (H) 150 - 328 [facility] 10*3/L [facility] MPV 11.1 9.8 - 13.0 fL [facility] NRBC/100 WBC 0.0 0.0 - 10.0 /100 [facility] WBCs [facility] NRBC x10^3 <0.01 10*3/L [facility] GRAN MAT (NEUT) % 77.6 % [facility] IMM GRAN % 4.40 % [facility] LYMPH % 9.0 % [facility] MONO % 8.9 % [facility] EOS % 0.0 % [facility] BASO % 0.1 % [facility] GRAN MAT x10^3(ANC) 35.17 (H) 1.99 - 6.95 [facility] 10*3/uL [facility] IMM GRAN x10^3 1.99 (H) 0.00 - 0.06 [facility] 10*3/uL [facility] LYMPH x10^3 4.08 (H) 1.09 - 3.23 [facility] 10*3/uL HOSPITAL LABORATORY MONO x10^3 4.04 (H) 0.36 - 1.02 [facility] 10*3/uL [facility] EOS x10^3 <0.03 (L) 0.06 - 0.53 [facility] 10*3/uL [facility] BASO x10^3 0.06 0.01 - 0.09 [facility] 10*3/uL [facility] Specimen Blood - VENOUS Performing Organization Address City/State/Zipcode Phone Number [facility] CLIA: [id number], [address] [place] [place], [place] [address] Glycosylated Hemoglobin (A1C) (06/07/2019 10:35 AM CDT) Pathologist Sig nature HGB A1C 9.6 (H) 4.0 - 6.0 % NGSP [facility] L [facility]OR[facility]ORY Specimen Blood - VENOUS Narrative Performed At %A1C (NGSP) Interpretation (ADA) [facility] 4.8-5.6 Normal or (Non-Diabetic Ra nge) 5.7-6.4 Increased Risk (Pre-Diabet ic) >6.5 Diabetes Indicated Performing Organization Address City/[facility] Phone Number [facility] CLIA: [id number], [address] [place] [place], [place] [address] POCT GLUCOSE (AUTOMATED) (06/07/2019 10:18 AM CDT) Pathologist Sig nature POCT GLU >600 (HH) 70 - 110 mg/dL [facility] Specimen Blood Performing Organization Address [facility] Phone Number [facility] CLIA: [id number], [address] documented in this encounter Visit Diagnoses Diagnosis DKA (diabetic ketoacidoses) - Primary Type II or unspecified type diabetes andreina litus with ketoacidosis, not stated as uncontrolled Diabetic ketoacidosis without coma assoc iated with other specified diabetes mellitus Leukocytosis, unspecified type Hypophosphatemia 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 Administered Medications Medication Order MAR Action Action Date Dose Rate Site acetaminophen (TYLENOL) tablet Given 06/09/2019 12:49 AM CDT 650 mg 650 mg 650 mg, Oral, Q8HPRN, Starting Shannan 06/08/19 at 1319, Until Discontinued, Routine, Pain (scale 1-3), Temp > 38.5 C ampicillin (PRINCIPEN) capsule 500 mg Given 06/10/2019 8:45 AM CDT 500 mg 500 mg, Oral, TID, First dose on Wed06/09/19 at 1400, Until Discontinued, JENNIFER, membership sales advisor approving Non-formulary medication: CONSTANZA SHARMA, Reason for Non-Formulary Use: SPECIFIC INDICATION FOR NONFORMULARY PRODUCT, Reason for Anti-Infective: Documented Infection, Documented Infection Site: Urine, Duration of Therapy: 10 days Given 06/09/2019 8:10 PM CDT 500 mg Given 06/09/2019 1:37 PM CDT 500 mg benzocaine-menthol (CEPACOL SORE THROAT Given 06/09/2019 7: 30 PM CDT 1 Lozenge (FRANCESCO-MEN)) lozenge 1 Lozenge 1 Lozenge, Oral, Q4HPRN, Starting Wed06/09/19 at 1719, Until Discontinued, Routine, Sore throat calcitrioL (ROCALTROL) capsule 0.5 mcg Given 06/10/2019 8:45 AM CDT 0.5 mcg 0.5 mcg, Oral, DAILY, First dose on Wed06/09/19 at 2245, Until Discontinued, Routine calcium carbonate (OSCAL-500) tablet 500 mg Given 06/10/2019 12:08 PM CDT 500 mg 500 mg, Oral, TID MEALS, First dose on Wed06/10/19 at 0615, Until Discontinued, Routine Given 06/10/2019 8:45 AM CDT 500 mg docusate (COLACE) capsule 100 mg Given 06/10/2019 8:46 AM CDT 100 mg 100 mg, Oral, BID, First dose on Wed06/07/19 at 2000, Until Discontinued, Routine Given 06/09/2019 8:10 PM CDT 100 mg Given 06/09/2019 9:54 AM CDT 100 mg insulin glargine (LANTUS U-100) Given 06/10/2019 8:44 AM CDT 26 Units Abdomen-SC injection 55 Units 55 Units, Subcutaneous, DAILY, First dose on Wed06/10/19 at 0900, Until Discontinued, Routine KCL (KLOR-CON M20) tablet 60 mEq Given 06/10/2019 8:45 AM CDT 60 mEq 60 mEq, Oral, BID, First dose on Wed06/10/19 at 0600, Until Discontinued, Routine Given 06/10/2019 6:15 AM CDT 60 mEq lactobacillus acidophilus (ACIDOPHILLUS) Given 06/10/2019 8 :45 AM CDT 1 tablet 25 million cell -100 mg captab 1 tablet 1 tablet, Oral, BID, First dose on Wed06/07/19 at 1345, Until Discontinued, Routine Given 06/09/2019 8:10 PM CDT 1 tablet Given 06/09/2019 9:53 AM CDT 1 tablet ondansetron (ZOFRAN (PF)) injection 4 mg Given 06/09/2019 8:19 PM CDT 4 mg 4 mg, Slow IV Push, Q6HPRN, Starting Wed06/07/19 at 1344, Until Discontinued, Routine, Nausea and Vomiting (N/V) Given 06/09/2019 1:21 AM CDT 4 mg potassium, sodium phosphates (PHOS-NAK) Given 06/10/2019 6: 17 AM CDT 2 Packets 280-160-250 mg packet 2 Packet 2 Packet, Oral, TID, 3 doses, First dose on 06/10/19 at 0600, Last dose on 06/10/19 at 1400, Routine Sliding Scale Insulin - Aspart Given 06/10/2019 11:31 AM 3 Units Left Upper (NOVOLOG) + Fsbg Testing CDT Arm-SC Subcutaneous, TID MEALS+HS, First dose on Shannan 06/08/19 at 1700, Until Discontinued, Routine Given 06/09/2019 8:09 PM CDT 2 Units Left Upper Arm-SC Given 06/09/2019 4:55 PM CDT 2 Units Left Upper Arm-SC traMADol (ULTRAM) tablet 50 mg Given 06/10/2019 4:00 AM CDT 50 mg 50 mg, Oral, BIDPRN, Starting Shannan 06/08/19 at 1319, Until Discontinued, Routine, Pain (scale 4-6), Pain (scale 7-10) Given 06/08/2019 11:29 PM CDT 50 mg Given 06/08/2019 1:42 PM CDT 50 mg Medication Order MAR Action Action Date Dose Rate Site azithromycin (ZITHROMAX) 500 mg Given 06/08/2019 3:20 PM CDT 50 0 mg in NaCl 0.9% (NS) 250 mL VIAL-MATE IV piggyback 500 mg, IV Piggyback, Q24H ABX, 5 doses, First dose on Shannan 06/08/19 at 1400, Last dose on 06/12/19 at 1400, 250 mL, Reason for Anti-Infective: Documented Infection, Documented Infection Site: Other, Other site: unknown dka, Duration of Therapy: Other (see Comments) azithromycin (ZITHROMAX) 500 mg in NaCl 0.9% Given 12:30 PM CDT 500 mg (NS) 250 mL 500 mg, IV Piggyback, ONCE, 1 dose, Wed06/07/19 at 1230, STAT, Reason for Anti-Infective: Documented Infection, Documented Infection Site: Other, Other site: unknown dka, Duration of Therapy: Other (see Comments) cefTRIAXone (ROCEPHIN) 1,000 mg in NaCl Given 06/07/2019 12:12 P M CDT 1,000 mg 0.9% (NS) 50 mL MINI-BAG 1,000 mg, IV Piggyback, ONCE, 1 dose, Wed06/07/19 at 1230, 50 mL, Reason for Anti-Infective: Documented Infection, Documented Infection Site: Other, Other site: uknown, dka, Duration of Therapy: Other (see Comments) cefTRIAXone (ROCEPHIN) 1,000 mg in NaCl Given 06/09/2019 12:50 A M CDT 1,000 mg 0.9% (NS) 50 mL MINI-BAG 1,000 mg, IV Piggyback, Q12H ABX, First dose on Wed06/08/19 at 1400, Until Discontinued, 50 mL, Reason for Anti-Infective: Documented Infection, Documented Infection Site: Other, Other site: uknown, dka, Duration of Therapy: Other (see Comments) Given 06/08/2019 1:57 PM CDT 1,000 mg D5W 0.45% NaCl (1/2NS) IV New Bag 06/08/2019 10:13 AM CDT 1,000 mL 200 mL/hr infusion 1,000 mL at 200 mL/hr, 1,000 mL, IV Infusion, CONTINUOUS, Starting Wed06/07/19 at 1345, Until Wed06/08/19 at 1312, JENNIFER New Bag 06/08/2019 5:30 AM CDT 1,000 mL 200 mL/hr New Bag 06/08/2019 12:10 AM CDT 1,000 mL 200 mL/hr flu vaccine 6 months and up Given 06/10/2019 5:23 PM CDT 0.5 mL Right Deltoid-IM (FLUZONE QUAD (PF)) syringe 0.5 mL 0.5 mL, Intramuscular, ONCE, 1 dose, 06/10/19 at 1645, Routine insulin glargine (LANTUS Given 06/09/2019 6:11 PM CDT 5 Units Left Upper Arm-SC U-100) injection 5 Units 5 Units, Subcutaneous, ONCE, 1 dose, Wed06/09/19 at 1830, Routine insulin glargine (LANTUS Given 06/09/2019 9:54 AM CDT 50 Units Left Upper Arm-SC U-100) injection 50 Units 50 Units, Subcutaneous, DAILY, First dose on Shannan 06/08/19 at 1315, Until Discontinued, Routine Given 06/08/2019 1:28 PM CDT 50 Units Righ t Upper Arm-SC insulin regular human New Bag 06/07/2019 11:42 AM 0.1 Units/kg/hr 12.8 mL/hr (HUMULIN R) 100 Units in CDT NaCl 0.9% (NS) 100 mL infusion 0.1 Units/kg/hr 128 kg (12.8 mL/hr), IV Infusion, TITRATE, Starting Wed06/07/19 at 1017, Until Wed06/07/19 at 1343 insulin regular human Rate Change 06/08/2019 12:39 PM 0.043 Units/ kg/hr 5.45 mL/hr (HUMULIN R) 100 Units CDT in NaCl 0.9% (NS) 100 mL infusion 0.1 Units/kg/hr 127 kg (12.7 mL/hr), IV Infusion, TITRATE, Starting Wed06/07/19 at 1342, Until Shannan 06/08/19 at 1312 Rate Change 06/08/2019 11:37 AM CDT 0.036 Units/kg/hr 4.54 mL/hr Rate Change 06/08/2019 10:31 AM CDT 0.04 Units/kg/hr 5.05 mL/hr insulin regular human (HUMULIN R) Given 06/07/2019 10:43 AM CDT 15 Units injection 15 Units 15 Units, IV Push, ONCE, 1 dose, Wed06/07/19 at 1145, Routine KCL (KLOR-CON M20) tablet 40 mEq Given 06/09/2019 12:18 PM CDT 40 mEq 40 mEq, Oral, Q4H, 2 doses, First dose on Wed06/09/19 at 0915, Last dose on Wed06/09/19 at 1200, Routine Given 06/09/2019 9:54 AM CDT 40 mEq KCL 10 mEq/50 mL Piggyback 10 mEq Given 06/10/2019 6:00 AM CDT 10 mEq 10 mEq, IV Piggyback, Q1H, 4 doses, First dose on 06/10/19 at 0600, Last dose on 06/10/19 at 0900, 50 mL magnesium sulfate in water 2 gram/50 mL (4 %) New 8:46 AM CDT 2 g infusion 2 g 2 g, IV Piggyback, ONCE, 1 dose, 06/10/19 at 0845, Routine NaCl 0.45% (1/2NS) IV infusion New 06/09/2019 11:08 AM CDT 1,000 mL 125 mL/hr 1,000 mL at 125 mL/hr, 1,000 mL, IV Infusion, CONTINUOUS, Starting Shannan 06/08/19 at 1415, Until Wed06/09/19 at 2232, Routine New Bag 06/09/2019 12:50 AM CDT 1,000 mL 125 mL/hr 06/08/2019 1:33 PM CDT 1,000 mL 125 mL/hr NaCl 0.9% (NS) bolus infusion New 06/07/2019 11:28 AM CDT 1,000 mL 999 mL/hr 1,000 mL at 999 mL/hr, 1,000 mL, IV Infusion, ONCE, 1 dose, Wed06/07/19 at 1100, JENNIFER NaCl 0.9% (NS) bolus infusion 06/07/2019 12:20 PM CDT 1,000 mL 999 mL/hr 1,000 mL at 999 mL/hr, 1,000 mL, IV Infusion, ONCE, 1 dose, Wed06/07/19 at 1200, JENNIFER NaCl 0.9% (NS) bolus infusion 06/07/2019 10:37 AM CDT 2,000 mL 999 mL/hr 2,000 mL at 999 mL/hr, 2,000 mL, IV Infusion, ONCE, 1 dose, Wed06/07/19 at 1030, JENNIFER NaCl 0.9% (NS) IV infusion 1,000 New 06/07/2019 6:50 PM C DT 1,000 mL 250 mL/hr mL at 250 mL/hr, 1,000 mL, IV Infusion, CONTINUOUS, Starting 06/07/19 at 1345, Until Wed06/08/19 at 1312, JENNIFER New 06/07/2019 2:11 PM CDT 1,000 mL 250 mL/hr NaCl 0.9% (NS) IV infusion New Bag 06/10/2019 12:22 AM CDT 100 mL/hr IV Infusion, at 100 mL/hr, CONTINUOUS, Starting Wed06/09/19 at 2345, Until Wed06/10/19 at 0551, Routine ondansetron (ZOFRAN (PF)) injection 4 mg Given 06/07/2019 11:52 AM CDT 4 mg 4 mg, Slow IV Push, ONCE, 1 dose, Wed06/07/19 at 1300, JENNIFER phosphorus (K PHOS NEUTRAL) tablet 2 Given 06/08/2019 1:05 PM C DT 2 tablets tablet 2 tablet (500 mg), Oral, Q4H, 2 doses, First dose on Wed06/08/19 at 1200, Last dose on Wed06/08/19 at 1600, Routine phosphorus (K PHOS NEUTRAL) tablet 2 Given 06/09/2019 8:10 PM C DT 2 tablets tablet 2 tablet (500 mg), Oral, BID, 4 doses, First dose on Wed06/08/19 at 2000, Last dose on Wed06/10/19 at 0800, Routine Given 06/09/2019 9:53 AM CDT 2 tablets Given 06/08/2019 9:32 PM CDT 2 tablets sodium bicarbonate (ANTACID (SODIUM Given 06/09/2019 8:10 PM CD T 650 mg BICARBONATE)) tablet 650 mg 650 mg, Oral, QID, First dose on Wed06/08/19 at 1645, Until Discontinued, Routine Given 06/09/2019 4:30 PM CDT 650 mg Given 06/09/2019 12:18 PM CDT 650 mg documented in this encounter [phone] (Work) documented as of this encounter Advance Directives Type Date Recorded Patient Investigative Writer Explanati on Advance Directives and Living 08/13/2016 6:27 PM Will Power of Injection Mold Technician 08/13/2016 6:27 PM
--- OUTSIDE RECORDS SUMMARY | 2019-08-29 06:01 | XMS REPORT | Summary of Care ---
:1990 Author Organization [facility] - [facility] Address [address] [place] [id number] Care Team Providers Name Role Phone Pcp, Patient Does Not Have A Primary Care Provider +-[phone] 0-0000 Lynn Edwards DO Criminal Defense Lawyer Reason for Visit Reason Comments Transition Of Care Encounter Details Date Type Department Care Team Description 06/13/[address] [facility] [address] [id number] Allergies No Known Allergiesdocumented as of this encounter (statuses as of 06/13/2019) Medications Medication Sig Dispensed Refills Start Date End Date Status glucagon (GLUCAGON inject 1 mg 1 mg 6 04/03/2013 Active EMERGENCY) 1 mg under the skin injectionIndications: as needed for Type I (juvenile type) Other (BG <70 diabetes mellitus and patient without mention of unresponsive.). complication, uncontrolled insulin degludec inject 46 Units 0 Active (TRESIBA FLEXTOUCH under the skin U-100) 100 unit/mL (3 daily. mL) InPn traZODone 50 mg tablet Take 50 mg by 0 Active mouth at bedtime. SERTraline 100 mg Take 100 mg by 0 Active tabletIndications: mouth daily. anxiety Indications: anxious NOVOLOG U-100 INSULIN inject under 0 Active ASPART SC the skin 3 (three) times daily before meals. potassium, sodium Take 1 Packet 3 Packet 0 06/10/2019 Active phosphates 280-160-250 by mouth 3 mg packetIndications: (three) times Hypophosphatemia daily. lactobacillus Take 1 tablet 14 tablet 0 06/10/2019 A ctive acidophilus 25 million by mouth 2 cell -100 mg (two) times captabIndications: daily. Leukocytosis, unspecified type ampicillin 500 mg Take 1 capsule 21 capsule 0 06/10/2019 Active capsuleIndications: by mouth 3 Leukocytosis, (three) times unspecified type daily. 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 Chlamydia infection 06/15/2013 Seasonal allergic rhinitis 05/24/2013 Obesity (BMI 30.0-34.9) 07/05/2012 Insulin pump status 06/20/2012 Overview: Medtronic 723 started May 2012 Uncontrolled type 1 diabetes mellitus 10/05/2008 Overview: ICD10 Diagnosis Term Personnel Training Officer Utility documented as of this encounter (statuses as of 06/13/2019) Immunizations Name Administration Dates Next Due Influenza [...] of this encounter Last Filed Vital Signs Not on filedocumented in this encounter Plan of Treatment Health Maintenance Due Date Last Done Comments VARICELLA VACCINES (1 of 2 - 08/18/1991 2-dose childhood series) PNEUMOCOCCAL 0-64 YEARS COMBINED 1996 SERIES (1 of 1 - PPSV23) DTaP,Tdap,and Td Vaccines (1 - 2001 Tdap) URINE MICROALBUMIN 05/24/2014 05/24/2013, 06/20/2012 EYE EXAM 07/18/2014 07/18/2013, 07/18/2013 FOOT EXAM 08/14/2017 08/14/2016, 08/14/2016, 05/24/2013 HgA1C 12/07/2019 06/07/2019, 10/16/2018, 05/24/2013, Additional history exists LDL-C 06/06/2020 06/07/2019, 10/17/2018, 01/16/2013, Additional history exists CREATININE (SERUM) 06/09/2020 06/10/2019, 06/10/2019, 06/09/2019, Additional history exists INFLUENZA VACCINE Completed 06/10/2019, 10/20/2017 documented as of this encounter Results Not on filedocumented in this encounter Insurance Payer Benefit Plan / Group Subscriber ID Effective Dates Phone Address Type AETNA AETNA [facility] [id number] 2018-Present PPO documented as of this encounter Advance Directives Type Date Recorded Patient Housing Case Manager Explanati on Advance Directives and Living 08/13/2016 6:27 PM Will Power of Flue Gas Analyst 08/13/2016 6:27 PM
[2019-08-29] MEDS ORDERED: ONDANSETRON 4 MG/2 ML VIAL ONE (06:18)
[2019-08-29] MEDS ORDERED: NA CHLORIDE 0.9% 1,000 ML ONE ×2 (06:18→07:06)
[2019-08-29 06:30] LABS: Urine Blood NEGATIVE (NEG); Urine Glucose 2+ (NEG); Urine Protein NEGATIVE (NEG); Urine Specific Gravity 1.025 (1.005-1.030); Urine pH 5.5 (5.0-7.0)
[2019-08-29 06:36] LABS: Absolute Lymphocytes (CBC) 1.3 K/uL (0.7-4.9); Basophils % 0.2 % (0-1.3); Hematocrit 42.4 % (39.6-49.0); Lymphocytes % 10.8 % (15.3-44.8); MPV 8.7 fL (7.6-11.3); RBC Red Blood Cell Count 4.62 M/uL (4.33-5.43)
[2019-08-29 06:39] LABS: ALT/SGPT 194 U/L (12-78); AST/SGOT 97 U/L (15-37); Albumin 3.4 g/dL (3.4-5.0); Alkaline Phosphatase 120 U/L (45-117); BUN Blood Urea Nitrogen 16 mg/dL (7-18); Bilirubin Direct 0.2 mg/dL (0-0.2); Glucose Level 368 mg/dL (74-106); Lipase 54 U/L (73-393); Potassium 4.2 mmol/L (3.5-5.1); Protein, Total 8.1 g/dL (6.4-8.2); Sodium Level 134 mmol/L (136-145)
[2019-08-29 06:41] LABS: Bicarbonate 11 mmol/L (21-32)
--- NOTE | 2019-08-29 07:04 | EDPHYS ---
Physician Documentation [facility] Name: Esa Esquivel Jr Age: 29 yrs Sex: Male : 1990 Arrival Date: 08/29/2019 Time: 05:55 Bed 5 Private MD: ED Physician Gilmar Levy HPI: 08/28 06:08 This 29 yrs old Male presents to ER via EMS with complaints of DKA. kb 06:08 The patient or guardian reports hyperglycemia. Onset: The symptoms/episode kb began/occurred yesterday. Associated signs and symptoms: Pertinent positives: nausea, vomiting. Current symptoms: In the emergency department the patient's symptoms are unchanged from the initial presentation. The patient has experienced similar episodes in the past. The patient has not recently seen a physician. "I think I'm in DKA." Pt reports nausea, vomiting, inability to hold anything down, high blood sugar since yesterday. Historical: - Allergies: 06:00 No Known Allergies; mg2 - Home Meds: 06:00 traziva for Diabetes [Active]; insulin [Active]; mg2 - PMHx: 06:00 Diabetes - IDDM; mg2 - Immunization history:: Flu vaccine is up to date. - Social history:: Smoking status: Patient denies any tobacco usage or history of. Patient uses alcohol, occasionally. Patient/guardian denies using street drugs, IV drugs. ROS: 06:09 Constitutional: Negative for fever, chills, and weight loss, Cardiovascular: Negative kb for chest pain, palpitations, and edema, Respiratory: Negative for shortness of breath, cough, wheezing, and pleuritic chest pain, Back: Negative for injury and pain, MS/Extremity: Negative for injury and deformity, Skin: Negative for injury, rash, and discoloration, Neuro: Negative for headache, weakness, numbness, tingling, and seizure. 06:09 Abdomen/GI: Positive for nausea and vomiting, Negative for abdominal pain, diarrhea, constipation. Exam: 06:09 Constitutional: This is a well developed, well nourished patient who is awake, alert, kb and in no acute distress. Head/Face: Normocephalic, atraumatic. Chest/axilla: Normal chest wall appearance and motion. Nontender with no deformity. No lesions are appreciated. Cardiovascular: Regular rate and rhythm with a normal S1 and S2. No gallops, murmurs, or rubs. Normal PMI, no JVD. No pulse deficits. Respiratory: Lungs have equal breath sounds bilaterally, clear to auscultation and percussion. No rales, rhonchi or wheezes noted. No increased work of breathing, no retractions or nasal flaring. Abdomen/GI: Soft, non-tender, with normal bowel sounds. No distension or tympany. No guarding or rebound. No evidence of tenderness throughout. Skin: Warm, dry with normal turgor. Normal color with no rashes, no lesions, and no evidence of cellulitis. MS/ Extremity: Pulses equal, no cyanosis. Neurovascular intact. Full, normal range of motion. Neuro: Awake and alert, GCS 15, oriented to person, place, time, and situation. Cranial nerves II-XII grossly intact. Motor strength 5/5 in all extremities. Sensory grossly intact. Cerebellar exam normal. Normal gait. Vital Signs: 05:56 BP 139 / 89; Pulse 92; Resp 18; Temp 97.9; Pulse Ox 98% on R/A; Weight 127.01 kg; mg2 Height 6 ft. 1 in. (185.42 cm); Pain 6/10; 07:00 BP 115 / 55; Pulse 87; Resp 21; Pulse Ox 98% ; Pain 0/10; jl7 05:56 Body Mass Index 36.94 (127.01 kg, 185.42 cm) mg2 MDM: 06:05 Patient medically screened. kb 06:10 Data reviewed: vital signs, nurses notes. Data interpreted: Pulse oximetry: on room air kb is 98 %. Interpretation: normal. 07:02 Counseling: I had a detailed discussion with the patient and/or guardian regarding: the kb historical points, exam findings, and any diagnostic results supporting the discharge/admit diagnosis, lab results, the need for further work-up and treatment in the hospital. Physician consultation: Washington PEÑA was contacted at 07:02, regarding admission, to the ICU, patient's condition, and will see patient shortly. 08/28 05:55 Order name: Basic Metabolic Panel; Complete Time: 06:43 mg2 08/28 05:55 Order name: CBC with Diff; Complete Time: 08:21 mg2 08/28 05:55 Order name: Hepatic Function; Complete Time: 06:43 mg2 08/28 05:55 Order name: Lipase; Complete Time: 06:43 mg2 08/28 06:05 Order name: Acetone, Serum; Complete Time: 07:16 kb 08/28 06:19 Order name: Urine Dipstick--Ancillary (enter results); Complete Time: 06:41 tt3 08/28 06:19 Order name: Glucose, Ancillary Testing; Complete Time: 06:23 EDMS 08/28 08:19 Order name: Manual Differential; Complete Time: 08:21 EDMS 08/28 08:20 Order name: Glucose, Ancillary Testing; Complete Time: 08:21 EDMS 08/28 09:20 Order name: Glucose, Ancillary Testing; Complete Time: 09:32 EDMS 08/28 10:38 Order name: Glucose, Ancillary Testing; Complete Time: 10:47 EDMS 08/28 11:20 Order name: Basic Metabolic Panel; Complete Time: 11:20 EDMS 08/28 12:08 Order name: Glucose, Ancillary Testing; Complete Time: 12:18 EDMS 08/28 13:13 Order name: Glucose, Ancillary Testing; Complete Time: 13:18 EDMS 08/28 05:55 Order name: IV Saline Lock; Complete Time: 06:12 mg2 08/28 05:55 Order name: Labs collected and sent; Complete Time: 06:12 mg2 08/28 06:05 Order name: Urine Dipstick-Ancillary (obtain specimen); Complete Time: 06:13 kb 08/28 07:02 Order name: EKG; Complete Time: 07:03 kb 08/28 07:02 Order name: EKG - Nurse/Tech; Complete Time: 08:23 kb 08/28 10:16 Order name: RAD; Complete Time: 10:18 EDMS Administered Medications: 06:12 Drug: Zofran (Ondansetron) 4 mg Route: IVP; Site: right antecubital; mg2 06:40 Follow up: Response: No adverse reaction mg2 06:13 Drug: NS 0.9% 1000 ml Route: IV; Rate: 1000 ml; Site: right hand; mg2 07:30 Follow up: Response: No adverse reaction; IV Status: Completed infusion; IV Intake: jl7 1000ml 07:00 Drug: Insulin Drip - (Insulin Regular Human 100 units, NS 0.9% 100 ml) {Co-Signature: mg2 jl7 (Perfecto Lopez RN).} Route: IV; Rate: calculated rate; Site: left antecubital; 07:30 Follow up: Response: No adverse reaction; IV Status: Infusion continued upon admission jl7 07:03 Drug: NS 0.9% 1000 ml Route: IV; Rate: 1000 ml; Site: left antecubital; mg2 07:30 Follow up: IV Status: Infusion continued upon admission jl7 Disposition: 08/29/19 07:03 Hospitalization ordered by Washington Rolle for Inpatient Admission. Preliminary diagnosis is Diabetes mellitus due to underlying condition with ketoacidosis without coma. - Bed requested for [facility] ER HOLD. - Status is Inpatient Admission. jl7 - Condition is Stable. - Problem is new. - Symptoms are unchanged. Addendum: 08/31/2019 19:37 Co-signature as Attending Physician, Gilmar Levy MD. m Signatures: Dispatcher [employer] EDMarva Solis FNP-C FNP-Ckb Webb, Martha, RN RN mw Leal, Jahala, RN RN jl7 Dequan Mix RN RN mg2 Holmes, Maurice, MD MD 7 Perfecto Lopez RN jl7 Corrections: (The following items were deleted from the chart) 08/28 07:06 07:03 Hospitalization Ordered by Washington PEÑA for Inpatient Admission. Preliminary mw diagnosis is Diabetes mellitus due to underlying condition with ketoacidosis without coma. Bed requested for Intensive Care Unit. Status is Inpatient Admission. Condition is Stable. Problem is new. Symptoms are unchanged. kb 14:00 07:06 08/29/2019 07:03 Hospitalization Ordered by Washington PEÑA for Inpatient jl7 Admission. Preliminary diagnosis is Diabetes mellitus due to underlying condition with ketoacidosis without coma. Bed requested for [facility] ER HOLD. Status is Inpatient Admission. Condition is Stable. Problem is new. Symptoms are unchanged. mw
--- NOTE | 2019-08-29 07:04 | ER ---
Nurse's Notes [facility] Name: Esa Esquivel Jr Age: 29 yrs Sex: Male : 1990 Arrival Date: 08/29/2019 Time: 05:55 Bed 5 Private MD: Diagnosis: Diabetes mellitus due to underlying condition with ketoacidosis without coma Presentation: 08/28 05:56 Chief complaint: EMS states: he has n/v , lower back pain since yesterday morning. mg2 vomited 4 times today, BGL -398, on insulin. Coronavirus screen: Patient denies a cough. Patient denies shortness of breath or difficulty breathing. Patient denies measured and/or subjective temperature greater than 100.4F prior to today's visit. Patient denies travel on a cruise ship or to a country the [facility] currently lists as an affected area. Patient denies contact with known and/or suspected case of COVID-19. Patient instructed to continue to wear a mask when interacting with others. Patient moved to private room, placed in contact and droplet isolation with eye protection until further assessment. Prior COVID test collected on: May 2019-negative. Ebola Screen: No symptoms or risks identified at this time. Initial Sepsis Screen: Does the patient meet any 2 criteria? No. Patient's initial sepsis screen is negative. Does the patient have a suspected source of infection? No. Patient's initial sepsis screen is negative. Risk Assessment: Do you want to hurt yourself or someone else? Patient reports no desire to harm self or others. Onset of symptoms was August 28, 2019. 05:56 Method Of Arrival: EMS: [facility] mg2 05:56 Acuity: TY 3 mg2 Triage Assessment: 06:00 General: Appears in no apparent distress. comfortable, Behavior is calm, cooperative. mg2 Pain: Complains of pain in back Pain currently is 6 out of 10 on a pain scale. Quality of pain is described as aching, Pain began gradually. EENT: No signs and/or symptoms were reported regarding the EENT system. Neuro: Level of Consciousness is awake, alert, obeys commands, Oriented to person, place, time, situation. Cardiovascular: Capillary refill < 3 seconds Patient's skin is warm and dry. Respiratory: Airway is patent Respiratory effort is even, unlabored, Respiratory pattern is regular, symmetrical. GI: Pt is actively vomiting clear fluid. GI: Reports nausea, vomiting, since yesterday morning. : No signs and/or symptoms were reported regarding the genitourinary system. Derm: Skin is intact, is healthy with good turgor, Skin is pink, warm \T\ dry. normal. Musculoskeletal: Circulation, motion, and sensation intact. Capillary refill < 3 seconds. Historical: - Allergies: 06:00 No Known Allergies; mg2 - Home Meds: 06:00 traziva for Diabetes [Active]; insulin [Active]; mg2 - PMHx: 06:00 Diabetes - IDDM; mg2 - Immunization history:: Flu vaccine is up to date. - Social history:: Smoking status: Patient denies any tobacco usage or history of. Patient uses alcohol, occasionally. Patient/guardian denies using street drugs, IV drugs. Screenin:01 Abuse screen: Denies threats or abuse. Denies injuries from another. Nutritional mg2 screening: No deficits noted. Tuberculosis screening: No symptoms or risk factors identified. Fall Risk IV access (20 points). Assessment: 06:01 General: see triage assessment. mg2 07:30 Reassessment: Pt admitted to ER hold. jl7 Vital Signs: 05:56 BP 139 / 89; Pulse 92; Resp 18; Temp 97.9; Pulse Ox 98% on R/A; Weight 127.01 kg; mg2 Height 6 ft. 1 in. (185.42 cm); Pain 6/10; 07:00 BP 115 / 55; Pulse 87; Resp 21; Pulse Ox 98% ; Pain 0/10; jl7 05:56 Body Mass Index 36.94 (127.01 kg, 185.42 cm) mg2 ED Course: 05:55 Patient arrived in ED. ds1 05:55 Dequan Mix, BAUDILIO is Primary Nurse. mg2 05:58 Triage completed. mg2 06:00 Arm band placed on. mg2 06:01 Patient has correct armband on for positive identification. Door closed. Warm blanket mg2 given. 06:01 No provider procedures requiring assistance completed. Maintain EMS IV. Dressing mg2 intact. Good blood return noted. Site clean \T\ dry. Gauge \T\ site: 20 RH. 06:05 [facility] Cur[facility] kb 06:05 Gilmar Levy MD is Attending Physician. kb 06:12 Basic Metabolic Panel Sent. ds4 06:12 Hepatic Function Sent. ds4 06:12 CBC with Diff Sent. ds4 06:12 Lipase Sent. ds4 06:40 Inserted saline lock: 20 gauge in left antecubital area, using aseptic technique. mg2 06:41 Notified Nurse Practitioner and/or Physician Milking System Installer of a critical lab result(s), CO2 lp1 11. 06:46 Acetone, Serum Sent. ds4 07:03 Washington Rolle FNP-C is Hospitalizing Provider. kb 07:30 Patient admitted, IV remains in place. intact, No redness/swelling at site. jl7 Administered Medications: 06:12 Drug: Zofran (Ondansetron) 4 mg Route: IVP; Site: right antecubital; mg2 06:40 Follow up: Response: No adverse reaction mg2 06:13 Drug: NS 0.9% 1000 ml Route: IV; Rate: 1000 ml; Site: right hand; mg2 07:30 Follow up: Response: No adverse reaction; IV Status: Completed infusion; IV Intake: jl7 1000ml 07:00 Drug: Insulin Drip - (Insulin Regular Human 100 units, NS 0.9% 100 ml) {Co-Signature: [facility] jl7 (Perfecto Lopez RN).} Route: IV; Rate: calculated rate; Site: left antecubital; 07:30 Follow up: Response: No adverse reaction; IV Status: Infusion continued upon admission jl7 07:03 Drug: NS 0.9% 1000 ml Route: IV; Rate: 1000 ml; Site: left antecubital; mg2 07:30 Follow up: IV Status: Infusion continued upon admission jl7 Intake: 07:30 IV: 1000ml; Total: 1000ml. jl7 Outcome: 07:03 Decision to Hospitalize by Provider. kb 07:30 Admitted to ER Hold. Please see [facility] for further documentation. jl7 07:30 Condition: stable 07:30 Instructed on the need for admit, Demonstrated understanding of instructions. 14:00 Patient left the ED. jl7 Signatures: Marva Curran FNP-C FNP-Cheryl Chan ds1 Crystal Vaughan RN RN lp1 Otto Basurto ds4 Perfecto Lopez RN RN jl7 Dequan Mix RN RN mg2 Jahala Lopez RN jl7
[2019-08-29] MEDS ORDERED: INSULIN -REGULAR HUMAN 50 UNIT/0.5 ML ML ONE ×3 (07:05→20:54)
[2019-08-29] MEDS ORDERED: NA CHLORIDE 0.9% 100 ML IV ONE (07:06)
--- NOTE | 2019-08-29 08:08 | P.HP ---
Certification for Inpatient Patient admitted to: Inpatient With expected LOS: >2 Midnights <Washington Rolle - Last Filed: 08/29/19 08:02> Patient History Date of Service: 08/29/19 Primary Care Provider: Sreedhar Reason for admission: DKA History of Present Illness: 29-year-old male with medical history of type 1 diabetes presents emergency department with a 2 day history of low back pain, nausea, vomiting. Patient reports that he has been unable to tolerate any fluids or food by mouth for the last 2 days. During his evaluation in the emergency department patient was found to have a blood sugar of 375 and anion gap of 20. CO2 11. Patient takes Tresiba and NovoLog at home, no other home medications. Patient's diabetes is reported to be moderately well controlled but has had a few episodes of DKA in the past year. Patient reports these episodes are usually brought on by either infection or stress, patient reports that he has been having to live in a hotel due to plumbing issues in his house and feels that this is probably stress related. Patient be admitted for further evaluation and management. - Past Medical/Surgical History Has patient received pneumonia vaccine in the past: No Diabetic: Yes -: Diabetes mellitus type 1 Past Surgical History: Patient denies surgical history Psychosocial/ Personal History: Patient currently living in hotel due to plumbing issues in house. - Family History Mother -: Heart disease, Diabetes Father -: Hypertension - Social History Smoking Status: Never smoker Alcohol use: Yes CD- Drugs: No Caffeine use: No Place of Residence: Home <Washington Rolle - Last Filed: 08/29/19 08:02> Date of Service: 08/30/19 <Tommy Sanchez - Last Filed: 08/30/19 14:39> Review of Systems 10-point ROS is otherwise unremarkable Gastrointestinal: Nausea, Vomiting <Washington Rolle - Last Filed: 08/29/19 08:02> Physical Examination - Physical Exam General: Alert, In no apparent distress HEENT: Atraumatic, PERRLA, Mucous membr. moist/pink, EOMI, Sclerae nonicteric Neck: Supple, 2+ carotid pulse no bruit, No LAD, Without JVD or thyroid abnormality Respiratory: Clear to auscultation bilaterally, Normal air movement Cardiovascular: Regular rate/rhythm, Normal S1 S2 Gastrointestinal: Normal bowel sounds, No tenderness Musculoskeletal: No tenderness Integumentary: No rashes Neurological: Normal gait, Normal speech, Normal strength at 5/5 x4 extr, Normal tone, Normal affect Lymphatics: No axilla or inguinal lymphadenopathy - Studies Laboratory Data (last 24 hrs) 08/29/19 06:08: WBC 12.0 H, Hgb 13.8, Hct 42.4, Plt Count 375 08/29/19 06:08: Sodium 134 L, Potassium 4.2, BUN 16, Creatinine 0.85, Glucose 368 H, Total Bilirubin 1.0, AST 97 H, ALT 194 H, Alkaline Phosphatase 120 H, Lipase 54 L <Washington Rolle - Last Filed: 08/29/19 08:02> Assessment and Plan - Plan Assessment Diabetes mellitus type 1 complicated with diabetic ketoacidosis Nausea and vomiting Plan Diabetes mellitus type 1 complicated with diabetic ketoacidosis: Patient s tarted on insulin drip while in the emergency department, will continue with this. Patient placed on electrolyte protocol. Will continue with maintenance fluids. Hourly Accu-Cheks and Q4H for BMP. Have ordered blood cultures, chest x-ray to rule out infection. Will obtain A1c level. Anticipate clinical improvement in the next 24 hr at which time patient can be downgraded. Possible discharge this early as tomorrow. DVT prophylaxis with Lovenox 40 mg subcutaneous once daily. Nausea and vomiting: Will start patient on clear liquid diet, provide nausea medication as needed. Advance diet as tolerated. Discharge Plan: Home Plan to discharge in: 48 Hours - Advance Directives Does patient have a Living Will: No Does patient have a Durable POA for Healthcare: No - Code Status/Comfort Care Code Status Assessed: Yes (Patient is full code) Critical Care: No Time Spent Managing Pts Care (In Minutes): 55 <Washington Rolle - Last Filed: 08/29/19 08:02> Physician Review Additional Text: The patient was seen and examined and findings were discussed Agree with the assessment and plan as documented by the TANESHA Patient was seen on 08/29/2019 and is note is for the encounter on that day <Tommy Sanchez - Last Filed: 08/30/19 14:39>
[2019-08-29 08:19] LABS: Blood Morphology Comment NOT SEEN (NOT SEEN); Platelet Estimate ADEQ
[2019-08-29] MEDS ORDERED: TRAMADOL HCL 50 MG TAB PO PRN (09:10)
[2019-08-29] MEDS ORDERED: ONDANSETRON 4 MG/2 ML VIAL IV PRN (09:10)
[2019-08-29] MEDS ORDERED: D5 0.45 NS 1,000 ML IV SCH (09:10)
[2019-08-29] MEDS ORDERED: HYDROCODONE/APAP 7.5/325 MG TAB PO PRN (09:10)
[2019-08-29] MEDS ORDERED: INSULIN -REGULAR HUMAN 100 UNIT in NA CHLORIDE 0.9% 100 ML IV SCH (09:10)
[2019-08-29] MEDS ORDERED: ENOXAPARIN 40 MG/0.4 ML SQ ONE (09:41)
[2019-08-29] MEDS ORDERED: NACHLORIDE 0.45% 1,000 ML IV ONE (09:41)
[2019-08-29] MEDS ORDERED: D5 0.45 NS 1,000 ML IV ONE (09:42)
--- NOTE | 2019-08-29 10:14 | RAD REPORT ---
EXAM DESCRIPTION: RAD - Chest Pa And Lat (2 Views) - 08/29/2019 9:36 am CLINICAL HISTORY: DKA, R/O Infection, shortness of breath, abdominal pain COMPARISON: None TECHNIQUE: Frontal and lateral views of the chest were obtained. FINDINGS: The lungs are clear. Heart size is normal and central vasculature is within normal limit s. No pleural effusion or pneumothorax seen. No acute bony finding noted. No aortic abnormality. IMPRESSION: No acute cardiopulmonary process.
[2019-08-29] MEDS: ENOXAPARIN 40 MG/0.4 ML SQ SCH (10:34)
[2019-08-29] MEDS: NACHLORIDE 0.45% 1,000 ML IV SCH ×2 (10:34→13:10)
[2019-08-29] MEDS: ACETAMINOPHEN 325 MG TABLET PO PRN ×2 (10:35→23:10)
[2019-08-29] MEDS ORDERED: ACETAMINOPHEN 325 MG TABLET ONE (10:37)
[2019-08-29 11:15] LABS: BUN Blood Urea Nitrogen 14 mg/dL (7-18); Bicarbonate 17 mmol/L (21-32); Glucose Level 177 mg/dL (74-106); Potassium 4.4 mmol/L (3.5-5.1); Sodium Level 139 mmol/L (136-145)
[2019-08-29 12:40] VITALS: BMI 36.9
[2019-08-29 15:07] LABS: BUN Blood Urea Nitrogen 13 mg/dL (7-18); Bicarbonate 18 mmol/L (21-32); Glucose Level 229 mg/dL (74-106); Potassium 4.3 mmol/L (3.5-5.1); Sodium Level 137 mmol/L (136-145)
[2019-08-29] MEDS: INSULIN GLARGINE 100 UNITS/ML SQ SCH (15:45)
[2019-08-29] MEDS: INSULIN -REGULAR HUMAN 50 UNIT/0.5 ML ML SQ SCH ×3 (16:30→21:40)
[2019-08-29 20:07] VITALS: O2SAT 99
[2019-08-29 20:48] LABS: Potassium 3.9 mmol/L (3.5-5.1)
[2019-08-30 06:16] LABS: Absolute Lymphocytes (CBC) 2.5 K/uL (0.7-4.9); Hematocrit 36.9 % (39.6-49.0); Lymphocytes % 31.5 % (15.3-44.8); MPV 8.6 fL (7.6-11.3); RBC Red Blood Cell Count 4.15 M/uL (4.33-5.43)
[2019-08-30 06:21] LABS: BUN Blood Urea Nitrogen 14 mg/dL (7-18); Bicarbonate 22 mmol/L (21-32); Glucose Level 210 mg/dL (74-106); HDL Cholesterol 53 mg/dL (40-60); LDL Cholesterol, Calculated 77 (<130); Magnesium 2.2 mg/dL (1.8-2.4); Sodium Level 140 mmol/L (136-145)
[2019-08-30 06:46] VITALS: TEMP 97.1
[2019-08-30] MEDS: INSULIN -REGULAR HUMAN 50 UNIT/0.5 ML ML SQ SCH ×4 (07:30→12:21)
[2019-08-30] MEDS: INSULIN GLARGINE 100 UNITS/ML SQ SCH (09:25)
--- NOTE | 2019-08-30 09:26 | P.DS ---
Admission Date: 08/29/19 Discharge Date: 08/30/19 Primary Care Provider: Sreedhar Reason for Admission: DKA Consultations: None Procedures: Chest x-ray FINDINGS: The lungs are clear. Heart size is normal and central vasculature is within normal limits. No pleural effusion or pneumothorax seen. No acute bony finding noted. No aortic abnormality. IMPRESSION: No acute cardiopulmonary process. Medical problem list Diabetes mellitus type 1 Brief History of Present Illness: 29-year-old male with medical history of type [facility] day history of low back pain, nausea, vomiting. Patient reports that he has been unable to tolerate any fluids or food by mouth for the last 2 days. During his evaluation in the emergency department patient was found to have a blood sugar of 375 and anion gap of 20. CO2 11. Patient takes Tresiba and NovoLog at home, no other home medications. Patient's diabetes is reported to be moderately well controlled but has had a few episodes of DKA in the past year. Patient reports these episodes are usually brought on by either infection or stress, patient reports that he has been having to live in a hotel due to plumbing issues in his house and feels that this is probably stress related. Patient be admitted for further evaluation and management. Hospital Course: Patient was admitted overnight, did very well. Patient came off of the insulin drip yesterday evening. Patient has been doing well with basal insulin and sliding scale therapy. Patient is tolerating his diet and feeling much better. Anion gap is 9 with morning labs, blood sugars well controlled. Patient electrolytes within normal limits. Patient is medically stable and feels that he is ready to go home. Patient is type 1 diabetic, at discharge patient will continue with his previously prescribed Tresiba 46 units injected once daily in addition to his sliding scale therapy. The patient went to follow up with his primary care doctor, . <Washington Rolle - Last Filed: 08/30/19 15:43> Admission Date: 08/29/19 Discharge Date: 08/30/19 <Tommy Sanchez - Last Filed: 08/30/19 16:38> Disposition: ROUTINE DISCHARGE Discharge Condition: GOOD Vital Signs/Physical Exam: Temp Pulse Resp BP Pulse Ox 97.1 F 79 18 124/69 96 08/30/19 08:00 08/30/19 08:00 08/30/19 08:00 08/30/19 08:00 08/30/19 08:00 General: Alert, In no apparent distress HEENT: Atraumatic, PERRLA, EOMI Neck: Supple, JVD not distended Respiratory: Clear to auscultation bilaterally, Normal air movement Cardiovascular: Regular rate/rhythm, Normal S1 S2 Gastrointestinal: Normal bowel sounds, No tenderness Musculoskeletal: No tenderness Integumentary: No rashes Neurological: Normal speech, Normal tone, Normal affect Laboratory Data at Discharge: WBC 8.0 K/uL (4.3-10.9) D 08/30/19 05:21 Hgb 12.4 g/dL (13.6-17.9) L 08/30/19 05:21 Hct 36.9 % (39.6-49.0) L 08/30/19 05:21 Plt Count 308 K/uL (152-406) 08/30/19 05:21 Sodium Cancelled 08/30/19 06:00 Potassium Cancelled 08/30/19 06:00 BUN Cancelled 08/30/19 06:00 Creatinine Cancelled 08/30/19 06:00 Glucose Cancelled 08/30/19 06:00 Magnesium 2.2 mg/dL (1.8-2.4) 08/30/19 05:21 Total Bilirubin 1.0 mg/dL (0.2-1.0) 08/29/19 06:08 AST 97 U/L (15-37) H 08/29/19 06:08 ALT 194 U/L (12-78) H 08/29/19 06:08 Alkaline Phosphatase 120 U/L (45-117) H 08/29/19 06:08 Triglycerides 179 mg/dL (<150) H 08/30/19 05:21 Cholesterol 166 mg/dL (<200) 08/30/19 05:21 HDL Cholesterol 53 mg/dL (40-60) 08/30/19 05:21 Cholesterol/HDL Ratio 3.13 08/30/19 05:21 Lipase 54 U/L (73-393) L 08/29/19 06:08 <Washington Rolle - Last Filed: 08/30/19 15:43> Vital Signs/Physical Exam: Temp Pulse Resp BP Pulse Ox 97.1 F 74 18 131/75 98 08/30/19 12:00 08/30/19 12:00 08/30/19 12:00 08/30/19 12:00 08/30/19 12:00 Laboratory Data at Discharge: WBC 8.0 K/uL (4.3-10.9) D 08/30/19 05:21 Hgb 12.4 g/dL (13.6-17.9) L 08/30/19 05:21 Hct 36.9 % (39.6-49.0) L 08/30/19 05:21 Plt Count 308 K/uL (152-406) 08/30/19 05:21 Sodium Cancelled 08/30/19 06:00 Potassium Cancelled 08/30/19 06:00 BUN Cancelled 08/30/19 06:00 Creatinine Cancelled 08/30/19 06:00 Glucose Cancelled 08/30/19 06:00 Magnesium 2.2 mg/dL (1.8-2.4) 08/30/19 05:21 Total Bilirubin 1.0 mg/dL (0.2-1.0) 08/29/19 06:08 AST 97 U/L (15-37) H 08/29/19 06:08 ALT 194 U/L (12-78) H 08/29/19 06:08 Alkaline Phosphatase 120 U/L (45-117) H 08/29/19 06:08 Triglycerides 179 mg/dL (<150) H 08/30/19 05:21 Cholesterol 166 mg/dL (<200) 08/30/19 05:21 HDL Cholesterol 53 mg/dL (40-60) 08/30/19 05:21 Cholesterol/HDL Ratio 3.13 08/30/19 05:21 Lipase 54 U/L (73-393) L 08/29/19 06:08 <Tommy Sanchez - Last Filed: 08/30/19 16:38> Patient Discharge Instructions: 1. Please follow up with the primary care doctor within 1-2 weeks to follow up this hospitalization. 2. Patient was admitted overnight, did very well. Patient came off of the insulin drip yesterday evening. Patient has been doing well with basal insulin and sliding scale therapy. Patient is tolerating his diet and feeling much better. Anion gap is 9 with morning labs, blood sugars well controlled. Patient electrolytes within normal limits. Patient is medically stable and feels that he is ready to go home. Patient is type 1 diabetic, at discharge patient will continue with his previously prescribed Tresiba 46 units injected once daily in addition to his sliding scale therapy. The patient will also need to follow up with his primary care doctor, . Diet: ADA Activity: Ad di Time spent managing pt's care (in minutes): 55 <Washington Rolle - Last Filed: 08/30/19 15:43> Physician Review: Patient Assessed, Agree with Above Assessment and Plan (Patient was seen and examined and findings were discussed Agree with the assessment and plan as documented by the TANESHA) <Tommy Sanchez - Last Filed: 08/30/19 16:38> Home Medications: Sertraline [Zoloft*] 100 mg PO PRN 08/29/19 Insulin Degludec [Tresiba Flextouch U-100] 46 unit SQ DAILY #1 ml 08/30/19 Insulin Regular, Human [Novolin R Flexpen] 1 units SQ DIRECTED #1 08/30/19 Ondansetron HCl [Zofran] 4 mg PO Q6HR PRN #10 tablet 08/30/19 Pantoprazole [Protonix Tab] 40 mg PO DAILY #15 tab 08/30/19 New Medications: Insulin Regular, Human [Novolin R Flexpen] 1 units SQ DIRECTED #1 Pantoprazole [Protonix Tab] 40 mg PO DAILY #15 tab Insulin Degludec [Tresiba Flextouch U-100] 46 unit SQ DAILY #1 ml Ondansetron HCl [Zofran] 4 mg PO Q6HR PRN #10 tablet PRN Reason: Nausea / Vomiting
[2019-08-30] MEDS: ENOXAPARIN 40 MG/0.4 ML SQ SCH (09:27)
--- NOTE | 2019-08-30 12:35 | EKG ---
Test Date: 2019-08-29 Test Time: 08:37:01 Poker Manager: TOMY MEASUREMENT RESULTS: Intervals: Rate: 87 MT: 166 QRSD: 98 QT: 384 QTc: 462 [place]: P: 74 MT: 166 QRS: 76 T: 60 INTERPRETIVE STATEMENTS: Normal sinus rhythm Nonspecific ST abnormality Abnormal ECG Compared to ECG 11/27/2011 09:36:26 ST (T wave) deviation now present Sinus arrhythmia no longer present Electronically Signed On 08-30-19 12:31:50 CDT by Timur Vyas
[2019-08-30 12:50] VITALS: BP 131/75
== END 2019-08-30 15:26 | disposition home or self-care (01) | DRG 639 ==
LOC: ER 05:54 → ERHOLD 07:55 → 2ND 22:52
PROVIDERS: ADMIT Family Medicine; ATTEND Family Medicine
DX: E10.10 Type 1 diabetes mellitus with ketoacidosis without coma (principal); Z79.4 Long term (current) use of insulin; Z11.59 Encounter for screening for other viral diseases
CPT/HCPCS: 36415; 71046; 80048; 80061; 80076; 81003; 82010; 82947; 83036; 83690; 83735; 85025; 87040; 93005; 96361; 96365; 96375; 99285; J1650; J1815; J2405; J7030; J7799; U0002